=== PATIENT | female | born 1935 | race Caucasian/White ===

== ENCOUNTER 2023-07-27 16:08 | Emergency (ER) | payer OTHER ==
[~2023-07-27] VITALS: Ht 165.1 cm; Wt 45.5 kg
[2023-07-27 17:24] LABS: Basophils # (auto) 0 10 ^3/uL (0-0.2); Basophils % (auto) 0.5 % (0.0-2.0); Eosinophils # (auto) 0 10 ^3/uL (0-0.8); Eosinophils % (auto) 0.3 % (0.0-7.0); Hematocrit 36.7 % (36.0-46.0); Lymphocytes % (auto) 12.7 % (10.0-50.0); Mean Corpuscular Hemoglobin 30.3 pg (28.0-32.0); Mean Corpuscular Hgb Conc. 32.6 g/dL (32.0-36.0); Mean Corpuscular Volume 93.1 fL (80.0-100.0); Monocytes # (auto) 0.5 10 ^3/uL (0-1.3); Monocytes % (auto) 6.4 % (0.0-12.0); Neutrophils # (auto) 6.1 10 ^3/uL (1.6-8.6); Neutrophils % (auto) 80.1 % (37.0-80.0); Red Blood Cells 3.95 10^6/uL (4.0-5.20); Red Cell Distribution Width 14.4 % (11.8-14.3); White Blood Cell 7.6 10^3/uL (4.4-10.8)
[2023-07-27 17:36] LABS: Chloride 106 mmol/L (98-107); Potassium 4.1 mmol/L (3.5-5.1); Sodium 141 mmol/L (136-145)
[2023-07-27 17:37] LABS: Anion Gap 9 (5-15); Calcium 9.6 mg/dL (8.5-10.1); Carbon Dioxide 26 mmol/L (20-30)
[2023-07-27 17:42] LABS: BUN/Creatinine Ratio 31.6 (10.0-20.0); Blood Urea Nitrogen 31 mg/dL (9-23); Glucose 102 mg/dL (74-106)
[2023-07-27 17:49] LABS: Urine Bacteria NONE SEEN /hpf (None Seen); Urine Blood Negative /uL (Negative); Urine Clarity Clear (Clear); Urine Color Colorless (Yellow); Urine Hyaline Cast FEW /lpf (0 - 2); Urine Mucus FEW (None Seen); Urine Protein, UAD Negative (Negative); Urine Specific Gravity 1.013 (1.001-1.035); Urine Urobilinogen Normal (Negative); Urine WBC 1 /hpf (0 - 5); Urine pH 6.5 (5.0-8.0)
[2023-07-27 21:40] VITALS: BP 155/56; TEMP 97.3
[2023-07-27 21:44] VITALS: PULSE 85; RESP 14; O2SAT 98
== END 2023-07-27 21:26 | disposition home or self-care (01) ==
LOC: EDUNIT# 16:08 → ER 16:08 → EDBD 16:08 → ER 21:26
DX: R55 Syncope and collapse (principal)
CPT/HCPCS: 36415; 70450; 80048; 80320; 81001; 82962; 84484; 85025; 93005

== ENCOUNTER 2025-03-29 15:02 | Inpatient (IN) | payer OTHER ==
[~2025-03-29] VITALS: Ht 165.1 cm; Wt 58.4 kg
[2025-03-29 16:26] VITALS: PULSE 87; RESP 13; O2SAT 97
[2025-03-29 16:35] LABS: Hematocrit 35.4 % (36.0-46.0); Hemoglobin 11.6 g/dL (12.2-16.2); Mean Corpuscular Hemoglobin 30.6 pg (28.0-32.0); Mean Corpuscular Volume 93.5 fL (80.0-100.0); Nucleated Red Blood Cells % 0.0 %
[2025-03-29 16:43] LABS: Potassium 4.3 mmol/L (3.5-5.1); Sodium 144 mmol/L (136-145)
[2025-03-29 16:44] LABS: Anion Gap 11 (5-15); Calcium 9.2 mg/dL (8.7-10.4); Carbon Dioxide 25 mmol/L (20-31)
[2025-03-29 16:47] LABS: Chloride 108 mmol/L (98-107)
[2025-03-29 16:49] LABS: BUN/Creatinine Ratio 44.4 (10.0-20.0); Glucose 100 mg/dL (74-106)
[2025-03-29 16:51] LABS: Blood Urea Nitrogen 36 mg/dL (9-23); Lipase 66 U/L (12-53)
--- NOTE | 2025-03-29 18:53 | DVH ---
EXAM: CT LEFT LOWER EXTREMITY W/O CON INDICATION: Fall/trauma TECHNIQUE: Axial images of left lower extremity without contrast have been obtained along with zimmerman l and sagittal reformatted images. All CT scans at this facility use dose modulation, iterative recon struction, and/or weight based dosing when appropriate to reduce radiation dose to as low as reasonab ly achievable. COMPARISON: None FINDINGS: BONES: Nondisplaced left intertrochanteric fracture with extension to the lesser and greater trochant ers. No significant displacement. No distal femoral fracture. 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 MUSCLES: No abnormal attenuation. JOINT SPACES: No joint effusion. Left knee joint space loss with chondrocalcinosis of the medial and lateral menisci TENDONS/LIGAMENTS: Intact. OTHER: Vascular calcifications. IMPRESSION: 1. Nondisplaced left intertrochanteric fracture with extension to the lesser and greater trochanters.
[2025-03-29] MEDS: ACETAMINOPHEN 325 MG TAB PO ONE ×2 (18:58→22:40)
--- NOTE | 2025-03-29 19:21 | DVH ---
EXAM: CT PELVIS WO CONTRAST INDICATION: Trauma/fall/probable pelvic fracture TECHNIQUE: Axial images of pelvis without contrast have been obtained along with coronal and sagittal reformatted images. All CT scans at this facility use dose modulation, iterative reconstruction, and /or weight based dosing when appropriate to reduce radiation dose to as low as reasonably achievable. COMPARISON: None FINDINGS: BONES: Left femoral intertrochanteric fracture no visualized sacral or additional pelvic fracture. MUSCLES: Asymmetric edema of the left vastus intermedius muscle belly compatible with reactive myosit is and/or muscle strain. JOINT SPACES: No joint effusion. Chondrocalcinosis of bilateral hips, [id number]-left with at least [id number] degenerative change. Suspected chondrocalcinosis along the sacroiliac joints. TENDONS/LIGAMENTS: Intact. OTHER: Large amount of stool burden correlate for constipation. Vascular calcifications. Symmetric sa croiliac joints. IMPRESSION: 1. Left femoral intertrochanteric fracture. 2. No additional pelvic fracture. 3. Reactive myositis and/or muscle strain of the left vastus intermedius muscle belly.
[2025-03-29 19:35] VITALS: PULSE 85; RESP 20; O2SAT 97
--- NOTE | 2025-03-29 19:52 | ED.PDOC ---
Musculoskeletal HPI Comments This patient is a 9-year-old female who arrives to the ED today via EMS due to complaints of left hip pain status post ground level fall earlier today. Patient apparently was seen at urgent care and imaging study confirmed a left- sided pelvic fracture. Patient arrives with an external rotation of the left leg and shortening. Patient denies any head trauma. Patient denies any fever nausea or vomiting. Vital signs were stable. Chief Complaint: Lower Extremity Time Seen by MD: 15:57 Primary Care Provider: AIDEN Arechiga Notes: Nurses Notes, Business Development Executive Notes Allergies: Coded Allergies: NO KNOWN ALLERGIES (Unverified , 07/27/23) Information Source: Patient, Emergency Med Personnel Mode of Arrival: EMS Location: Left Extremity Location: Hip, Leg Timing: Hours Prehospital treatment: None Severity: Moderate Able to Move Extremity: No Bear Weight: No Hand Dominance: Right Mechanism: Blunt Trauma Circumstances: Fall Onset of Symptoms: After Trauma Symptoms: Pain DVT Risk Factors: NONE Past Medical History PAST MEDICAL HISTORY: HTN Surgical History: Denies all surgeries DYE MACHINE OPERATOR History: No Pertinent DYE MACHINE OPERATOR History Family History Family History: No family hx of Cancer, No family hx of DM, No family hx of Heart roger Social History Smoker: Non-Smoker Alcohol: Heavy Drugs: Denies Drug Use Lives In: Home Constitutional: denies: chills, diaphoresis, fatigue, fever, malaise, sweats, weakness, others EENTM: denies: blurred vision, double vision, ear bleeding, ear discharge, ear drainage, ear pain, ear ringing, eye pain, eye redness, hearing loss, mouth pain, mouth swelling, nasal discharge, nose bleeding, nose congestion, nose pain, photophobia, tearing, throat pain, throat swelling, voice changes, others Respiratory: denies: cough, hemoptysis, orthopnea, SOB at rest, shortness of breath, SOB with excertion, stridor, wheezing, others Cardiovascular: denies: chest pain, dizzy spells, diaphoresis, Dyspnea on exertion, edema, irregular heart beat, left arm pain, lightheadedness, palpitations, PND, syncope, others Gastrointestinal: denies: abdomen distended, abdominal pain, blood streaked bowels, constipated, diarrhea, dysphagia, difficulty swallowing, hematemesis, melena, nausea, poor appetite, poor fluid intake, rectal bleeding, rectal pain, vomiting, others Genitourinary: denies: abnormal vagina bleeding, burning, dyspareunia, dysuria, flank pain, frequency, hematuria, incontinence, pain, , vagina discharge, urgency, others Neurological: denies: dizziness, fainting, headache, left sided numbness, left sided weakness, numbness, paresthesia, pre-existing deficit, right sided numbness, right sided weakness, seizure, speech problems, tingling, tremors, weakness, others Musculoskeletal: reports: others (Left hip and left leg pain); denies: back pain, gout, joint pain, joint swelling, muscle pain, muscle stiffness, neck pain Integumetry: denies: bruises, change in color, change in hair/nails, dryness, laceration, lesions, lumps, rash, wounds, others Allergic/Immunocompromised: denies: Difficulty Healing, Frequent Infections, Hives, Itching, others Hematologic/Lymphatic: denies: anemia, blood clots, easy bleeding, easy bruising, swollen glands, others Endocrine: denies: excessive hunger, excessive sweating, excessive thirst, excessive urination, flushing, intolerance to cold, intolerance to heat, unexplained weight gain, unexplained weight loss, others Psychiatric: denies: anxiety, bipolar disorder, depression, hopeless, panic disorder, schizophrenia, sleepless, suicidal, others Physical Exam General Appearance: Moderate Distress ([id number] distress due to left hip and left leg pain concerns.), Thin HEENT: Normal ENT Inspection, Pharynx Normal, TMs Normal Neck: Full Range of Motion, Non-Tender, Normal, Normal Inspection Respiratory: Chest Non-Tender, Lungs Clear, No Accessory Muscle Use, No Respiratory Distress, Normal Breath Sounds Cardiovascular: No Edema, No JVD, No Murmur, No Gallop, Normal Peripheral Pulses, Regular Rate/Rhythm Breast Exam: Deferred Gastrointestinal: No Organomegaly, Non Tender, No Pulsatile Mass, Normal Bowel Sounds, Soft Genitalia: Deferred Pelvic: Deferred Rectal: Deferred Extremities: Other (Diffuse left hip pain extending into the left leg and into the lower extremity. Patient displays and external rotation and shortening of the leg. Significant reduced range of motion. Patient can not bear weight.) Neurologic: Alert Cerebellar Function: NOT DONE Reflexes: NOT DONE Skin: Dry, Normal Color, Warm Lymphatic: No Adenopathy Was a procedure done? Was a procedure done?: No Differential Diagnosis EXT Differential Diagnosis: Fracture, Sprain, Dislocation, Contusion, Strain X-Ray, Labs, Meds, VS Vital Signs Date Time Temp Pulse Resp B/P (MAP) Pulse Ox O2 Delivery O2 Flow Rate FiO2 03/30/25 02:14 98.1 100 18 172/76 (108) 97 98.1 03/30/25 01:44 204/93 03/29/25 21:49 98.1 78 18 135/85 (102) 97 98.1 03/29/25 19:35 98.1 85 18 143/81 (101) 97 98.1 03/29/25 19:35 85 20 97 Room Air* 0 21 03/29/25 18:00 90 16 188/76 (113) 97 03/29/25 16:26 87 13 97 Room Air* 0 21 03/29/25 16:26 97.8 87 13 136/68 (90) 97 97.8 03/29/25 15:08 98.3 86 12 155/69 96 98.3 Lab Test 03/29/25 17:24 03/29/25 16:20 Range/Units Troponin I High Sensitivity 6 7 </=34 ng/L White Blood Count 10.7 4.4-10.8 10^3/uL Red Blood Count 3.79 L 4.0-5.20 10^6/uL Hemoglobin 11.6 L 12.2-16.2 g/dL Hematocrit 35.4 L 36.0-46.0 % Mean Corpuscular Volume 93.5 80.0-100.0 fL Mean Corpuscular Hemoglobin 30.6 28.0-32.0 pg Mean Corpuscular Hemoglobin Concent 32.7 32.0-36.0 g/dL Red Cell Distribution Width 14.0 11.8-14.3 % Platelet Count 204 140-450 10^3/uL Mean Platelet Volume 8.5 6.9-10.8 fL Neutrophils (%) (Auto) 82.5 H 37.0-80.0 % Lymphocytes (%) (Auto) 9.6 L 10.0-50.0 % Monocytes (%) (Auto) 7.3 0.0-12.0 % Eosinophils (%) (Auto) 0.1 0.0-7.0 % Basophils (%) (Auto) 0.5 0.0-2.0 % Neutrophils # (Auto) 8.8 H 1.6-8.6 10 ^3/uL Lymphocytes # (Auto) 1.0 0.4-5.4 10 ^3/uL Monocytes # (Auto) 0.8 0-1.3 10 ^3/uL Eosinophils # (Auto) 0 0-0.8 10 ^3/uL Basophils # (Auto) 0 0-0.2 10 ^3/uL Nucleated Red Blood Cells 0.0 % Sodium Level 144 136-145 mmol/L Potassium Level 4.3 3.5-5.1 mmol/L Chloride Level 108 H 98-107 mmol/L Carbon Dioxide Level 25 20-31 mmol/L Anion Gap 11 5-15 Blood Urea Nitrogen 36 H 9-23 mg/dL Creatinine 0.81 0.550-1.02 mg/dL Glomerular Filtration Rate Calc 70 >90 mL/min BUN/Creatinine Ratio 44.4 H 10.0-20.0 Serum Glucose 100 74-106 mg/dL Lactic Acid Level 1.0 0.4-2.0 mmol/L Calcium Level 9.2 8.7-10.4 mg/dL Lipase 66 H 12-53 U/L Current Medications Medications (Trade) Dose Ordered Sig/Ethan Route Start Time Stop Time Status Last Admin Acetaminophen (Tylenol Tablet) 650 mg ONCE ONCE PO 03/29/25 19:00 03/29/25 19:01 DC 03/29/25 18:58 Acetaminophen (Tylenol Tablet) 650 mg ONCE ONCE PO 03/29/25 22:15 03/29/25 22:16 DC 03/29/25 22:40 Acetaminophen (Tylenol Tablet) 650 mg Q6HP PRN PO 03/29/25 23:00 03/30/25 01:44 Clonidine HCl (Catapres Tablet) 0.2 mg ONCE ONCE PO 03/30/25 01:30 03/30/25 01:31 DC 03/30/25 01:44 X-Ray, Labs, Meds, VS Comment All studies performed the ED today were evaluated by me personally. Serum laboratories revealed a mild anemia as well as an elevated lipase. Imaging studies confirmed a nondisplaced left intertrochanteric fracture with the extension into the lesser and greater trochanters. Patient is a [facility] patient and therefore, patient will be transfer for continued evaluation and management. Spoke with the [facility] and advised them of patient presentation as well as imaging and laboratories studies. They agreed to accept the patient is a transfer. Authorization number [id number]. [facility] called back to our facility and stated that they could not find placement for the patient. They were attempting to transfer the patient to a sister facility. [facility] states they can not get the patient placed and therefore, patient will be placed on admission. Dr. Muñoz was notified earlier this evening in his aware of the patient's admission. Spoke with Aiden to confirm continued care for patient at our facility. Spoke with Dr. Clark and he confirmed the patient can maintain continued care at our facility. Same authorization number as above. Time of 1ST Reevaluation: 19:49 Reevaluation 1ST: Improved Consultation: PCP Patient Education/Counseling: Diagnosis, Treatment Family Education/Counseling: Diagnosis, Treatment Sepsis Sepsis Reasesment Focused Exam Orders: Laboratory Tests 03/29/25 16:20: Lactic Acid Level 1.0 Recent Procedure: No On Antibiotic Therapy: No Respiratory Rate >20: No Heart Rate >90: No Temp<36 C (96.8 F) or >38.3 C: No SBP <90 or MAP <65 mmHG: No New Acute Mental Status Change: No Is the patient on CPAP, BIPAP,: No IV fluid given: No Departure 1 Departure Time of Disposition: 19:50 Impression: Primary Impression: Intertrochanteric fracture Disposition: ADMITTED INPATIENT Condition: Stable Discharged With: Self Critical Care Note Critical Care Time?: No Stability Stability form required: No Heart Score Heart Score: Heart Score Response (Comments) Value History N/A 0 EKG N/A 0 Age N/A 0 Risk Factors N/A 0 Troponin N/A 0 Total 0 RAMA TAPIA PAC Mar 29, 2025 19:52
[2025-03-30] VITALS (7 sets, daily range): BP systolic 142–175; BP diastolic 64–89; PULSE 66–136; RESP 18–20; TEMP 97.3–98.3; O2SAT 94–98
[2025-03-30] MEDS: ACETAMINOPHEN 325 MG TAB PO PRN (01:44)
[2025-03-30] MEDS ORDERED: MORPHINE SULFATE INJ 2 MG/ml SYRG IV PRN (03:00)
[2025-03-30] MEDS ORDERED: NITROGLYCERIN 0.4 MG SL TAB SL PRN (03:00)
[2025-03-30] MEDS ORDERED: ONDANSETRON HCL 4 MG/2 ML VIAL IV PRN (03:00)
--- NOTE | 2025-03-30 03:12 | DVHHP2 ---
History of Present Illness Reason for Visit: Intertrochanteric fracture History of Present Illness The patient is a 89-year-old female with past medical history of hypertension who presented to [facility] ED with complaint of left hip pain status post fall injury. Patient reports she had ground level fall earlier today hitting his left hips with sustained injury. Patient was seen at urgent care initially and imaging reports confirmed a left-sided pelvic fracture. Patient was seen and evaluated in the ED with an external rotation of the left leg and shortening. Laboratory data shows WBC 10.7, hemoglobin 11.6, hematocrit 35.4, platelets 204, sodium 144, potassium 4.3, BUN 36, creatinine 0.81, glucose 100, calcium 9.2, lipase 66, troponin seven, blood pressure 172/76 trending down to 135/86, heart rate 78, temperature 98.1 F, O2 saturation 97% on room air. Left lower extremity CT revealing nondisplaced left intratrochanteric fracture with extension to the laser and greater trochanters; pelvis CT revealing left femoral intratrochanteric fracture. Please see medication orders section in the computer. On my assessment, patient denied chest pain, no headache, dizziness, diaphoresis, shortness of breaths, no abdominal pain, diarrhea, nausea, vomiting, fever, chills. Patient was admitted for further evaluation and medical management. Past Medical History Hypertension Past Surgical History Denies all surgeries Family History Reviewed, noncontributory to the management of this case. Past Social History Patient lives at home, denies smoking, drinks alcohol heavily, denies illicit drugs abuse. Review of Systems Constitutional: Yes: Weakness; No: Fever, Chills, Sweats, Malaise, Other Eyes: No: Pain, Vision change, Conjunctivae inflammation, Eyelid inflammation, Other, Redness ENT: No: Ear pain, Ear discharge, Nose pain, Nose discharge, Nose congestion, Mouth pain, Mouth swelling, Throat pain, Throat swelling, Other Respiratory: No: Cough, Dry, Shortness of breath, SOB with excertion, Wheezing, Hemoptysis, Pleuritic Pain, Sputum, Wheezing, Other Cardiovascular: No: Chest Pain, Palpitations, Orthopnea, Paroxysmal Noc. Dyspnea, Edema, Lt Headedness, Other Gastrointestinal: No: Nausea, Vomiting, Abdominal Pain, Diarrhea, Constipation, Melena, Hematochezia, Other Genitourinary: No Dysuria, No Frequency, No Incontinence, No Hematuria, No Retention, No Other Musculoskeletal: other (Left hip and left leg pain); No: neck pain, shoulder pain, arm pain, back pain, hand pain, leg pain, foot pain Skin: No: Rash, Lesions, Jaundice, Bruising, Other Neurological: No: Weakness, Numbness, Incoordination, Change in speech, Confusion, Seizures, Other Allergies: Coded Allergies: NO KNOWN ALLERGIES (Unverified , 07/27/23) Medications Current Medications Medications Dose Ordered Sig/Ethan Route Start Time Stop Time Status Last Admin Dose Admin Acetaminophen 650 mg Q6HP PRN PO 03/29/25 23:00 03/30/25 01:44 650 MG Exam Vital Signs Vital Signs Date Time Temp Pulse Resp B/P (MAP) Pulse Ox O2 Delivery O2 Flow Rate FiO2 03/30/25 02:14 98.1 100 18 172/76 (108) 97 98.1 03/29/25 19:35 Room Air* 0 21 General Appearance: Alert, Oriented X3, Cooperative, No acute distress HEENT: Atraumatic, PERRLA, EOMI, Mucous membr. moist/pink Respiratory: Clear to auscultation, Normal air movement Cardiovascular: Regular rate, Normal S1, Normal S2, No murmurs Abdominal: Normal bowel sounds, Soft, No tenderness, No hepatospenomegaly, No masses Extremities: No clubbing, No cyanosis, No edema, Normal pulses, Other (Left lower extremity tenderness) Skin: No rashes, No breakdown, No significant lesion Neuro: Normal speech, Normal tone, Sensation intact, Cranial nerves 3-12 NL, Reflexes 2+, Other (Generalized weakness) Psych/Mental Status: Mental status NL, Mood NL Labs/Xrays Labs Test 03/29/25 17:24 03/29/25 16:20 Range/Units Troponin I High Sensitivity 6 </=34 ng/L White Blood Count 10.7 4.4-10.8 10^3/uL Red Blood Count 3.79 L 4.0-5.20 10^6/uL Hemoglobin 11.6 L 12.2-16.2 g/dL Hematocrit 35.4 L 36.0-46.0 % Mean Corpuscular Volume 93.5 80.0-100.0 fL Mean Corpuscular Hemoglobin 30.6 28.0-32.0 pg Mean Corpuscular Hemoglobin Concent 32.7 32.0-36.0 g/dL Red Cell Distribution Width 14.0 11.8-14.3 % Platelet Count 204 140-450 10^3/uL Mean Platelet Volume 8.5 6.9-10.8 fL Neutrophils (%) (Auto) 82.5 H 37.0-80.0 % Lymphocytes (%) (Auto) 9.6 L 10.0-50.0 % Monocytes (%) (Auto) 7.3 0.0-12.0 % Eosinophils (%) (Auto) 0.1 0.0-7.0 % Basophils (%) (Auto) 0.5 0.0-2.0 % Neutrophils # (Auto) 8.8 H 1.6-8.6 10 ^3/uL Lymphocytes # (Auto) 1.0 0.4-5.4 10 ^3/uL Monocytes # (Auto) 0.8 0-1.3 10 ^3/uL Eosinophils # (Auto) 0 0-0.8 10 ^3/uL Basophils # (Auto) 0 0-0.2 10 ^3/uL Nucleated Red Blood Cells 0.0 % Sodium Level 144 136-145 mmol/L Potassium Level 4.3 3.5-5.1 mmol/L Chloride Level 108 H 98-107 mmol/L Carbon Dioxide Level 25 20-31 mmol/L Anion Gap 11 5-15 Blood Urea Nitrogen 36 H 9-23 mg/dL Creatinine 0.81 0.550-1.02 mg/dL Glomerular Filtration Rate Calc 70 >90 mL/min BUN/Creatinine Ratio 44.4 H 10.0-20.0 Serum Glucose 100 74-106 mg/dL Lactic Acid Level 1.0 0.4-2.0 mmol/L Calcium Level 9.2 8.7-10.4 mg/dL Lipase 66 H 12-53 U/L PATIENT: RADHA PACE ACCT: [id number] UNIT: [id number] : 1935 LOC: ER ROOM / BED: / AGE / SEX: 89 / F ADM STATUS: REG ER SERVICE 1609 ORDERING PHYSICIAN: RAMA TAPIA PAC PROCEDURE(s): LLEX - LEFT LOWER EXTREMITY W/O CON REASON: Fall/trauma ORDER NUMBER(s): [id number], ACCESSION NUMBER(s): [id number] EXAM: CT LEFT LOWER EXTREMITY W/O CON INDICATION: Fall/trauma TECHNIQUE: Axial images of left lower extremity without contrast have been obtained along with coronal and sagittal reformatted images. All CT scans at this facility use dose modulation, iterative reconstruction, and/or weight based dosing when appropriate to reduce radiation dose to as low as reasonably achievable. COMPARISON: None FINDINGS: BONES: Nondisplaced left intertrochanteric fracture with extension to the lesser and greater trochanters. No significant displacement. No distal femoral fracture. Enchondroma of the distal femoral diaphysis. MUSCLES: No abnormal attenuation. JOINT SPACES: No joint effusion. Left knee joint space loss with chondrocalcinosis of the medial and lateral menisci TENDONS/LIGAMENTS: Intact. OTHER: Vascular calcifications. IMPRESSION: 1. Nondisplaced left intertrochanteric fracture with extension to the lesser and greater trochanters. ORDERING PHYSICIAN: RAMA TAPIA PAC PROCEDURE(s): PL2CT - PELVIS WO CONTRAST REASON: Trauma/fall/probable pelvic fracture ORDER NUMBER(s): [id number], ACCESSION NUMBER(s): [id number] EXAM: CT PELVIS WO CONTRAST INDICATION: Trauma/fall/probable pelvic fracture TECHNIQUE: Axial images of pelvis without contrast have been obtained along with coronal and sagittal reformatted images. All CT scans at this facility use dose modulation, iterative reconstruction, and/or weight based dosing when appropriate to reduce radiation dose to as low as reasonably achievable. COMPARISON: None FINDINGS: BONES: Left femoral intertrochanteric fracture no visualized sacral or additional pelvic fracture. MUSCLES: Asymmetric edema of the left vastus intermedius muscle belly compatible with reactive myositis and/or muscle strain. JOINT SPACES: No joint effusion. Chondrocalcinosis of bilateral hips, [id number]-left with at least [id number] degenerative change. Suspected chondrocalcinosis along the sacroiliac joints. TENDONS/LIGAMENTS: Intact. OTHER: Large amount of stool burden correlate for constipation. Vascular calcifications. Symmetric sacroiliac joints. IMPRESSION: 1. Left femoral intertrochanteric fracture. 2. No additional pelvic fracture. 3. Reactive myositis and/or muscle strain of the left vastus intermedius muscle belly. SEPSIS Sepsis Screen Date sepsis recognized/suspect: Mar 29, 2025 Time Sepsis recognized/suspect: 1935 Recent Procedure: No On Antibiotic Therapy: No Respiratory Rate >20: No Heart Rate >90: No Temp<36 C (96.8 F) or >38.3 C: No SBP <90 or MAP <65 mmHG: No New Acute Mental Status Change: No Is the patient on CPAP, BIPAP,: No IV fluid challenge completed?: No Physician Orders Imaging Transfer Request (03/29/25 20:33) Acetaminophen Tablet (Tylenol Tablet) (03/29/25 23:00) Complete Blood Count (03/30/25 04:00) Comprehensive Metabolic Panel (03/30/25 04:00) Clonidine Hcl Tablet (Catapres Tablet) (03/30/25 03:00) Lisinopril Tablet (Zestril Tablet) (03/30/25 10:00) * Orthopedic Consult (03/30/25 02:49) Admit (03/30/25 02:49) Allergies (03/30/25 02:49) Code Status (03/30/25 02:49) Sodium Chloride Lock (Saline Lock Ns) (03/30/25 06:00) Oxygen Per Hour (03/30/25 02:49) Hydrocodone-Acet 5/325mg Tab ([place]yle 5/32 (03/30/25 03:00) Ondansetron Hcl (Zofran) (03/30/25 03:00) Docusate Sodium Capsule (Colace Capsule) (03/30/25 03:00) Fall Risk Precautions In Place QSHIFT (03/30/25 02:49) Complete Blood Count (03/31/25 04:00) Comprehensive Metabolic Panel (03/31/25 04:00) Cardiac Diet-2gna,Lofat,Lochol (03/30/25 Breakfast) Condition: Serious (03/30/25 02:49) Enoxaparin Sodium (Lovenox) (03/30/25 10:00) Maintain Bed Rest (03/30/25 02:49) Sequential Compression Device (03/30/25 ) Nitroglycerin Sublingual (Ntrostat Subli (03/30/25 03:00) Morphine Sulfate Injection (03/30/25 03:00) Stat Ekg For Chest Pain (03/30/25 02:49) Notify Of Changes From Base (03/30/25 02:49) Monologist For 24 Hours (03/30/25 02:49) Emergency Dysrhythmia Protocol (03/30/25 02:49) Rhythm Strips Once Every Shift (03/30/25 02:49) Oxygen By Nasal Cannula (03/30/25 02:49) Vital Signs Date Time Temp Pulse Resp B/P (MAP) Pulse Ox O2 Delivery O2 Flow Rate FiO2 03/30/25 02:14 98.1 100 18 172/76 (108) 97 98.1 03/30/25 01:44 204/93 03/29/25 21:49 98.1 78 18 135/85 (102) 97 98.1 03/29/25 19:35 98.1 85 18 143/81 (101) 97 98.1 03/29/25 19:35 85 20 97 Room Air* 0 21 Laboratory Tests Test 03/29/25 16:20 Lactic Acid Level 1.0 mmol/L (0.4-2.0) White Blood Count 10.7 10^3/uL (4.4-10.8) Medications Medications Dose Ordered Sig/Ethan Route Start Time Stop Time Status Last Admin Dose Admin Acetaminophen 650 mg ONCE ONCE PO 03/29/25 19:00 03/29/25 19:01 DC 03/29/25 18:58 650 MG Acetaminophen 650 mg ONCE ONCE PO 03/29/25 22:15 03/29/25 22:16 DC 03/29/25 22:40 650 MG Acetaminophen 650 mg Q6HP PRN PO 03/29/25 23:00 03/30/25 01:44 650 MG Clonidine HCl 0.2 mg ONCE ONCE PO 03/30/25 01:30 03/30/25 01:31 DC 03/30/25 01:44 0.2 MG Assessment/Plan Assessment/Plan Intertrochanteric fracture Hypertensive urgency Generalized weakness Plan 1. Admit to telemetry unit 2. Breathing treatment 3. Pain control management 4. Management of fluids and electrolytes 5. Consultation for orthopedic surgery 6. Diagnostic tests pelvic CT 7. DVT prophylaxis-on Lovenox 8. Repeat labs CBC, CMP in a.m. 9. Continue with current medical management 10. Treatment plan discussed with patient and RN. Patient verbalized unders tanding. Plan discussed with: Patient, Other (RN) My Orders Orders - RIKA LARSEN DNP Procedure Category Date Status Time Complete Blood Count LAB 03/30/25 Verified 04:00 Comprehensive LAB 03/30/25 Verified Metabolic Panel 04:00 Clonidine Hcl Tablet [facility] 03/30/25 Verified (Catapres Tablet) 03:[address] [facility] 03/30/25 Verified (Zestril Tablet) 10:00 * Orthopedic Consult CONS 03/30/25 Verified 02:49 Admit ADMIT 03/30/25 Verified 02:49 Allergies [facility] 03/30/25 Verified 02:49 Code Status CODE 03/30/25 Verified 02:49 Sodium Chloride Lock PHA 03/30/25 Verified (Saline Lock Ns) 06:00 Oxygen Per Hour RT 03/30/25 Verified 02:49 Hydrocodone-Acet [facility] 03/30/25 Verified 5/325mg Tab (Argyle 03:[address] [facility] 03/30/25 Verified (Zofran) 03:[address] [facility] 03/30/25 Verified Capsule (Colace 03:00 Fall Risk Precautions [facility] 03/30/[address] 02:49 Complete Blood Count LAB 03/31/25 Verified 04:00 Comprehensive LAB 03/31/25 Verified Metabolic Panel 04:00 Cardiac DIET 03/30/25 Verified Diet-2gna,Lofat,Lochol Breakfast Condition: Serious [facility] 03/30/25 Verified 02:[address] [facility] 03/30/25 Verified (Lovenox) 10:00 Maintain Bed Rest [facility] 03/30/25 Verified 02:49 Sequential [facility] 03/30/25 Verified Compression Device Nitroglycerin [facility] 03/30/25 Verified Sublingual (Ntrostat 03:[address] [facility] 03/30/25 Verified Injection 03:00 Stat Ekg For Chest [facility] 03/30/25 Verified Pain 02:49 Notify Md Of Changes [facility] 03/30/25 Verified From Base 02:49 Monologist For [facility] 03/30/25 Verified 24 Hours 02:49 Emergency Dysrhythmia [facility] 03/30/25 Verified Protocol 02:49 Rhythm Strips Once [facility] 03/30/25 Verified Every Shift 02:49 Oxygen By Nasal RT 03/30/25 Verified Cannula 02:49 Problem List: (1) Intertrochanteric fracture (2) Hypertensive urgency (3) Generalized weakness Date of Service: Mar 30, 2025 Billing Provider: RIKA LARSEN DNP Common Visit Codes: [id number] INP/OBS CARE (HIGH) RIKA LARSEN DNP Mar 30, 2025 03:12
[2025-03-30] MEDS: SODIUM CHLOR 0.9% PF (SALINE LOCK) 10ML VIAL/SYR IV SCH (06:02)
--- NOTE | 2025-03-30 08:59 | DVH ---
CLINICAL INFORMATION: Fracture. TECHNIQUE: 3 views of the pelvis and left hip were obtained. COMPARISON: CT PELVIS WO CONTRAST on DOS: 03/29/25 FINDINGS: Acute, comminuted left hip intertrochanteric fracture with associated varus angulation, cor relating with the fracture seen on recent CT exam. Moderate joint space narrowing of the left hip. Mo derate soft tissue swelling adjacent to the fracture site. Bowel gas and stool partially obscure visu alization of portions of the pelvic osseous structures. IMPRESSION: Acute left hip intertrochanteric fracture.
[2025-03-30 09:05] LABS: Hematocrit 30.8 % (36.0-46.0); Hemoglobin 10.5 g/dL (12.2-16.2); Mean Corpuscular Hemoglobin 31.2 pg (28.0-32.0); Mean Corpuscular Volume 91.4 fL (80.0-100.0); Nucleated Red Blood Cells % 0.0 %
[2025-03-30 09:26] LABS: Alanine Aminotransferase 14 U/L (7-40); Albumin 3.9 g/dL (3.2-4.8); Alkaline Phosphatase 74 U/L (46-116); Anion Gap 10 (5-15); BUN/Creatinine Ratio 32.4 (10.0-20.0); Bilirubin, Total 1.0 mg/dL (0.2-1.0); Calcium 8.8 mg/dL (8.7-10.4); Carbon Dioxide 26 mmol/L (20-31); Glucose 104 mg/dL (74-106); Potassium 3.8 mmol/L (3.5-5.1); Sodium 144 mmol/L (136-145); Total Protein 6.3 g/dL (5.7-8.2)
[2025-03-30 10:05] LABS: Blood Urea Nitrogen 23 mg/dL (9-23); Chloride 108 mmol/L (98-107)
[2025-03-30] MEDS: ENOXAPARIN SOD 30 MG/0.3 ML SYRINGE SC SCH (11:29)
[2025-03-30] MEDS: LISINOPRIL 20 MG TAB PO SCH (12:06)
--- NOTE | 2025-03-30 12:07 | DVHINCON2 ---
Date of service: Mar 30, 2025 Referring Physician ED Reason for Consultation Left hip fracture History of Present Illness This is an 89-year-old woman who reports that she was in her home when she suffered a mechanical fall to her left side resulting in severe pain and inability to ambulate. She was brought to the emergency room where x-rays revealed a left proximal femur intertrochanteric fracture for which orthopedic consultation was requested. Prior to her injury she is an independent ambulator and active in all activities of daily living. She lives with her family in her own home. She denies any cardiac or neurologic symptoms associated with this fall. She denies any other injuries. She denies any head trauma. Past Medical History Hypertension Past Surgical History Denies Family History: Patient reports no known family medical history. Social History No drinking smoking or drugs Allergies: Coded Allergies: NO KNOWN ALLERGIES (Unverified , 07/27/23) Current Medications Current Medications Medications (Trade) Dose Ordered Sig/Ethan Route PRN Reason Start Time Stop Time Status Last Admin Acetaminophen (Tylenol Tablet) 650 mg Q6HP PRN PO PAIN SCALE 1-3 OR TEMP>100.4 03/29/25 23:00 03/30/25 11:29 Clonidine HCl (Catapres Tablet) 0.1 mg Q4HP PRN PO SBP>150 03/30/25 03:00 Lisinopril (Zestril Tablet) 20 mg DAILY PO 03/30/25 10:00 Sodium Chloride (Saline Lock Ns) 10 ml Q8HR IV 03/30/25 06:00 03/30/25 06:02 Acetaminophen/ Hydrocodone Bitart ([place] 5/325MG Tab) 1 tab Q4HP PRN PO MODERATE PAIN (4-6 PAIN SCALE) 03/30/25 03:00 Ondansetron HCl (Zofran) 4 mg Q4HP PRN IV NAUSEA / VOMITING 03/30/25 03:00 Docusate Sodium (Colace Capsule) 100 mg BIDPRN PRN PO FOR CONSTIPATION 03/30/25 03:00 Enoxaparin Sodium (Lovenox) 30 mg DAILY SC 03/30/25 10:00 03/30/25 11:29 Nitroglycerin (Ntrostat Sublingual) 0.4 mg Q5MINP PRN SL FOR CHEST PAIN 03/30/25 03:00 Morphine Sulfate 2 mg Q30M PRN IV FOR CHEST PAIN 03/30/25 03:00 Review of Systems Negative on 10 point review except as Vital Signs Vital Signs Date Time Temp Pulse Resp B/P (MAP) Pulse Ox O2 Delivery O2 Flow Rate FiO2 03/30/25 02:44 90/45 03/30/25 02:14 98.1 100 18 97 98.1 03/29/25 19:35 Room Air* 0 21 Physical Exam Well-developed well-nourished female in no acute distress Alert and oriented x4 She is holding her left lower extremity in an unusual position so it is difficult to assess deformity Any passive range of motion left lower extremity causes severe hip pain There was no lower extremity edema 2+ DP pulse She is able to demonstrate some minimal flexion-extension of the ankle Sensation subjectively intact X-rays of her left hip reveal a left proximal femur displaced intertrochanteric fracture Labs/Diagnostic Data Labs Test 03/30/25 08:56 03/29/25 17:24 03/29/25 16:20 Range/Units White Blood Count 6.0 # 4.4-10.8 10^3/uL Red Blood Count 3.37 L 4.0-5.20 10^6/uL Hemoglobin 10.5 L 12.2-16.2 g/dL Hematocrit 30.8 #L 36.0-46.0 % Mean Corpuscular Volume 91.4 80.0-100.0 fL Mean Corpuscular Hemoglobin 31.2 28.0-32.0 pg Mean Corpuscular Hemoglobin Concent 34.1 32.0-36.0 g/dL Red Cell Distribution Width 13.5 11.8-14.3 % Platelet Count 177 140-450 10^3/uL Mean Platelet Volume 7.9 6.9-10.8 fL Neutrophils (%) (Auto) 76.8 37.0-80.0 % Lymphocytes (%) (Auto) 12.6 10.0-50.0 % Monocytes (%) (Auto) 9.6 0.0-12.0 % Eosinophils (%) (Auto) 0.5 0.0-7.0 % Basophils (%) (Auto) 0.5 0.0-2.0 % Neutrophils # (Auto) 4.6 1.6-8.6 10 ^3/uL Lymphocytes # (Auto) 0.8 0.4-5.4 10 ^3/uL Monocytes # (Auto) 0.6 0-1.3 10 ^3/uL Eosinophils # (Auto) 0 0-0.8 10 ^3/uL Basophils # (Auto) 0 0-0.2 10 ^3/uL Nucleated Red Blood Cells 0.0 % Sodium Level 144 136-145 mmol/L Potassium Level 3.8 3.5-5.1 mmol/L Chloride Level 108 H 98-107 mmol/L Carbon Dioxide Level 26 20-31 mmol/L Anion Gap 10 5-15 Blood Urea Nitrogen 23 # 9-23 mg/dL Creatinine 0.71 0.550-1.02 mg/dL Glomerular Filtration Rate Calc 82 >90 mL/min BUN/Creatinine Ratio 32.4 H 10.0-20.0 Serum Glucose 104 74-106 mg/dL Calcium Level 8.8 8.7-10.4 mg/dL Total Bilirubin 1.0 0.2-1.0 mg/dL Aspartate Amino Transferase (AST) 28 13-40 U/L Alanine Aminotransferase (ALT) 14 7-40 U/L Alkaline Phosphatase 74 46-116 U/L Total Protein 6.3 5.7-8.2 g/dL Albumin 3.9 3.2-4.8 g/dL Troponin I High Sensitivity 6 </=34 ng/L Lactic Acid Level 1.0 0.4-2.0 mmol/L Lipase 66 H 12-53 U/L Assessment Acute displaced left proximal femur intertrochanteric fracture Plan/Recommendation Plan is for closed reduction cephalomedullary nail. I explained the diagnosis, prognosis, treatment options, procedure, and risks which include but are not limited to infection, bleeding, transfusion, malunion, nonunion, iatrogenic fracture, leg length discrepancy, nerve injury, PE, and DVT. Patient understood and agreed to proceed. All questions answered. Plan discussed with: Patient ALEC HILTON MD Mar 30, 2025 12:07
[2025-03-30] MEDS: MELATONIN 5 MG TAB PO ONE (22:00)
[2025-03-30] MEDS: KETOROLAC TROMETH 30 MG/ML 1ML VIAL IV ONE (23:45)
[2025-03-31 08:00] VITALS: PULSE 115; RESP 16; O2SAT 95
[2025-03-31 08:42] VITALS: BP 147/73; PULSE 112; RESP 16; TEMP 97.7; O2SAT 94
[2025-03-31] MEDS: ceFAZolin 2 GM/D5W50ml 50 ML IV ONE (10:12)
[2025-03-31] MEDS: TETRACAINE 1% INJ 2 ML VIAL IJ ONE (10:55)
[2025-03-31] MEDS ORDERED: MIDAZOLAM HCL 2MG/2ML 2ml VIAL (1mg/ml) ONE (10:59)
[2025-03-31] MEDS ORDERED: KETAMINE 50mg/ML 10ml Vial 10 ML ONE (10:59)
[2025-03-31] MEDS ORDERED: fentaNYL CITRATE 100 MCG/2 ML VL ONE (10:59)
[2025-03-31] MEDS ORDERED: PHENYLEPHRINE HCL 10 MG/ML VL ONE (12:10)
--- NOTE | 2025-03-31 12:10 | DVHOP2 ---
Operative Report - 2 Report Details Date: 03/31/25 Preop Diagnosis: Left proximal femur displaced intertrochanteric fracture Postop Diagnosis: Left proximal femur displaced intertrochanteric fracture Surgeon: Alec Hilton MD Anesthesiologist: Lydia Anesthesia: Regional Implant: [place] cephalomedullary nail 130 degree by 9 mm, 95 mm hip screw, 36 mm distal locking screw Consent: The patient was informed of the risks and benefits of the procedure. These include but are not limited to complications of anesthesia, postoperative infection, incomplete relief of symptoms, recurrence of symptoms, damage to blood vessels, nerves and tendons, deep venous thrombosis, pulmonary embolism and possible need for repeat surgery in the future. Complications: None Estimated Blood Loss: 20 cc Fluids: See anesthesia record Findings: Left proximal femur displaced intertrochanteric fracture Indications for Surgery: Unstable hip fracture Name of Procedure Performed Left proximal femur intertrochanteric fracture closed reduction, cephalomedullary nail C-arm fluoroscopy Procedure Details Procedure Details: The patient was brought to the operating room and placed on the [place] table in the supine position after being given spinal anesthetic. Preop patient received IV Ancef. Nonoperative extremity was placed in the well-leg luna. Operative extremity placed in boot traction. Closed reduction maneuver performed and verified with C-arm fluoroscopy in AP and lateral views. Surgical timeout performed verifying patient, laterality and procedure. Operative extremity was prepped and draped in sterile fashion. Incision was made proximal to the greater trochanter then I incised the fascia. I passed a guidewire into the proximal femur and adjusted the position based on AP and lateral views with C arm. I used the soft tissue protector and reamed over the guidewire then guidewire was removed. I then inserted the previously templated nail until appropriate depth was reached based on C-arm fluoroscopy. I then passed the hip screw cannula to skin then made skin and fascial incision and passed it to bone. I inserted a guidewire into the proximal femoral neck and head and again adjusted position based on C arm. I measured for length. I then reamed and inserted the hip screw. Guidewire and cannula were removed. I then used the distal locking cannula through the static hole passing it to skin and making skin and fascial incision then passing it to bone. I drilled and measured length off the drill bit and inserted distal locking screw. I obtain C arm views AP and lateral throughout the length of the construct to verify fracture reduction and hardware placement. Wounds were irrigated with normal saline. Fascial tissue closed with 0 Vicryl. Subcu closed with 2-0 Vicryl. Skin closed with bharati. Wounds dressed sterilely. Patient tolerated procedure well was brought to recovery in stable condition. Condition Stable Disposition Still a Patient ALEC HILTON MD Mar 31, 2025 12:10
[2025-03-31] MEDS ORDERED: STERILE WATER 10 ML ONE (12:11)
[2025-03-31] MEDS ORDERED: HYDROcodone-ACET 10/325MG TAB PO PRN (12:15)
[2025-03-31 12:21] VITALS: PULSE 122; RESP 22; O2SAT 100
[2025-03-31] MEDS ORDERED: ONDANSETRON HCL 4 MG/2 ML VIAL IV PRN (13:00)
--- NOTE | 2025-03-31 13:24 | DVHPN2 ---
Subjective The patient seen and examined at bedside. Per daughter at bedside the patient is very confuse and out of her base line. Patient also told me she see different color and immage that nobody else see in the room. She said it happen couple month ago when she had her heart valve replacement, she started seeing these image. Reviewed: Care Plan, H&P, Labs, Medications, Previous Orders, Radiology Changes from previous H/P or p: No Changes Eyes: No Pain, No Vision change, No Conjunctivae inflammation, No Eyelid inflammation, No Other, No Redness ENT: No Ear pain, No Ear discharge, No Nose pain, No Nose discharge, No Nose congestion, No Mouth pain, No Mouth swelling, No Throat pain, No Throat swelling, No Other Cardiovascular: No Chest Pain, No Palpitations, No Orthopnea, No Paroxysmal Noc. Dyspnea, No Edema, No Lt Headedness, No Other Respiratory: No Cough, No Dry, No Shortness of breath, No SOB with excertion, No Wheezing, No Hemoptysis, No Pleuritic Pain, No Sputum, No Other Gastrointestinal: No Nausea, No Vomiting, No Abdominal Pain, No Diarrhea, No Constipation, No Melena, No Hematochezia, No Other Genitourinary: No Dysuria, No Frequency, No Incontinence, No Hematuria, No Retention, No Other Musculoskeletal: other (Left hip and left leg pain); No neck pain, No shoulder pain, No arm pain, No back pain, No hand pain, No leg pain, No foot pain Skin: No Rash, No Lesions, No Jaundice, No Bruising, No Other Objective Vitals Vital Signs Date Time Temp Pulse Resp B/P (MAP) Pulse Ox O2 Delivery O2 Flow Rate FiO2 03/31/25 08:42 97.7 112 16 147/73 (97) 94 97.7 03/31/25 08:00 Room Air* 0 21 Intake/Output Intake and Output 03/31/25 07:00 Intake Total 0 ml Balance 0 ml Intake Oral 0 ml # Voids 1 General Appearance: Alert, Cooperative, No acute distress HEENT: Atraumatic, PERRLA, EOMI, Mucous membr. moist/pink Neck: Supple Lungs: Clear to auscultation, Normal air movement Cardiovascular: Regular rate, Normal S1, Normal S2, No murmurs, Gallops, Rubs Abdomen: Normal bowel sounds, Soft, No tenderness Neuro: Cranial nerves 3-12 NL Psych/Mental Status: Mental status NL Medications Current Medications Medications Dose Ordered Sig/Ethan Route Start Time Stop Time Status Last Admin Dose Admin Acetaminophen 650 mg Q6HP PRN PO 03/29/25 23:00 03/30/25 11:29 650 MG Clonidine HCl 0.1 mg Q4HP PRN PO 03/30/25 03:00 Lisinopril 20 mg DAILY PO 03/30/25 10:00 03/30/25 12:06 20 MG Sodium Chloride 10 ml Q8HR IV 03/30/25 06:00 03/30/25 14:53 10 ML Acetaminophen/ Hydrocodone Bitart 1 tab Q4HP PRN PO 03/30/25 03:00 Ondansetron HCl 4 mg Q4HP PRN IV 03/30/25 03:00 Docusate Sodium 100 mg BIDPRN PRN PO 03/30/25 03:00 Nitroglycerin 0.4 mg Q5MINP PRN SL 03/30/25 03:00 Morphine Sulfate 2 mg Q30M PRN IV 03/30/25 03:00 Lactated Ringer's 1,000 ml @ 100 mls/hr Q10H IV 03/31/25 12:15 Sodium Chloride 10 ml Q8HR IV 03/31/25 14:00 Enoxaparin Sodium 40 mg DAILY SC 04/01/25 10:00 Acetaminophen/ Hydrocodone Bitart 1 tab Q4HP PRN PO 03/31/25 12:15 Cefazolin Sodium/ Dextrose 50 ml @ 50 mls/hr Q8HR IV 03/31/25 14:00 03/31/25 22:59 Laboratory Results Laboratory Tests 03/30/25 08:56 Labs and/or images reviewed: Labs reviewed by me Assessment/Plan Assessment/Plan Left Intertrochanteric fracture status post ORIF Hypertensive urgency, improved. Generalized weakness Encephalopathy ? Hallucination. History of Aortic valve replacement. Continue current management. Will order UA and Urine culture Continue HTN meds Will order CT head without contrast to rule out CVA This medical document was created using an electronic medical record system with [employer] computerized dictation system. Although this document has been carefully reviewed, there may still be some phonetic and typographical errors. These areas are purely typographical due to imperfections of the software programs, and do not reflect any compromise in the patient's medical care. Plan discussed with: Patient Date of Service: Mar 31, 2025 Billing Provider: MAHAMED MARRERO MD Common Visit Codes: [id number] INP/OBS CARE(HIGH) MAHAMED MARRERO MD Mar 31, 2025 13:24
[2025-03-31] MEDS: SODIUM CHLOR 0.9% PF (SALINE LOCK) 10ML VIAL/SYR IV SCH (14:00)
[2025-03-31] MEDS: ceFAZolin 2 GM/D5W50ml 50 ML IV SCH (14:00)
--- NOTE | 2025-03-31 17:26 | DVH ---
CT HEAD WITHOUT CONTRAST INDICATION: rule out CVA EXAM DATE: 03/31/2025 04:46 PM COMPARISON: CT HEAD WITHOUT CONTRAST on DOS: 07/27/23 RADIATION DOSE: CTDIvol: 51.78 mGy, DLP: 1020.65 mGy*cm PROCEDURE: CT scans of the head were obtained from the vertex to the skull base. Sagittal and coronal reconstructions were provided. All CT scans at this medical facility are performed using dose modulation techniques as appropriate t o a performed exam including the following: Automated exposure control was utilized; adjustment of th e MA and/or KV according to patient size; and use of iterative reconstruction technique. FINDINGS: There is sulcal and ventricular prominence. The brainshows normal morphology and kumar-whi te matter differentiation, without intracranial hemorrhage, extra-axial fluid collection, mass effect or acute large vessel infarct. The ventricles are normal in size. The basal cisterns are patent. The skull and visible facial bones are intact. The paranasal sinuses, mastoid air cells and middle ear c avities are well-aerated. The soft tissues of the scalp are unremarkable. Incomplete fusion of C1. IMPRESSION: No acute intracranial abnormality.
--- NOTE | 2025-03-31 18:07 | DVH ---
C-ARM FLUOROSCOPY: PROCEDURE: Open reduction internal fixation of the left proximal femoral fracture FLUOROSCOPY TIME: 26 seconds Air Kerma: 2.45 mgy FINDINGS: Spot intraoperative C arm radiographs demonstrating open reduction internal fixation left proximal fe moral fracture. IMPRESSION: 1. Please refer to surgical report for detailed findings.
--- NOTE | 2025-03-31 18:09 | DVH ---
CLINICAL INDICATION: LEFT HIP NAILING TECHNIQUE: 7 radiographic views of the open reduction internal fixation of a left hip fracture were o btained. Comparison: XY L HIP COMPLETE XRAY on DOS: 03/30/25 FINDINGS/IMPRESSION: Total fluoro time 26 seconds Cumulative dose: 2.45 mGy
[2025-03-31 18:58] LABS: Hematocrit 27.9 % (36.0-46.0); Hemoglobin 9.4 g/dL (12.2-16.2); Mean Corpuscular Hemoglobin 31.1 pg (28.0-32.0); Mean Corpuscular Volume 91.9 fL (80.0-100.0); Nucleated Red Blood Cells % 0.0 %
[2025-03-31 19:14] LABS: INR 1.03 (0.9-1.15); Partial Thromboplastin Time 25.0 SEC (24.5-34.5); Prothrombin Time 10.9 sec (9.3-11.8)
[2025-03-31 19:15] LABS: Alanine Aminotransferase 26 U/L (7-40); Albumin 3.5 g/dL (3.2-4.8); Alkaline Phosphatase 66 U/L (46-116); Anion Gap 12 (5-15); BUN/Creatinine Ratio 31.9 (10.0-20.0); Bilirubin, Total 0.9 mg/dL (0.2-1.0); Carbon Dioxide 23 mmol/L (20-31); Chloride 106 mmol/L (98-107); Glucose 105 mg/dL (74-106); Sodium 141 mmol/L (136-145); Total Protein 5.8 g/dL (5.7-8.2)
[2025-03-31 19:36] LABS: Blood Urea Nitrogen 23 mg/dL (9-23); Calcium 8.6 mg/dL (8.7-10.4); Potassium 3.5 mmol/L (3.5-5.1)
[2025-03-31 20:00] VITALS: PULSE 120
[2025-03-31 21:00] VITALS: BP 109/54; PULSE 103; RESP 19; TEMP 99.8; O2SAT 92
[2025-03-31] MEDS: LACTATED RINGER'S 1,000 ML IV SCH (22:15)
[2025-04-01] VITALS (9 sets, daily range): BP systolic 95–138; BP diastolic 42–80; PULSE 93–127; RESP 18–20; TEMP 97.4–98.9; O2SAT 90–97
[2025-04-01 03:10] LABS: Urine Protein, UAD TRACE (Negative)
[2025-04-01] MEDS ORDERED: LISI10TA34 PO (03:37)
[2025-04-01] MEDS ORDERED: GAB100C PO (03:37)
[2025-04-01] MEDS: ENOXAPARIN SOD 40 MG/0.4 ML SYRINGE SC SCH (10:22)
[2025-04-01 10:35] LABS: Hematocrit 24.7 % (36.0-46.0); Hemoglobin 8.4 g/dL (12.2-16.2); Mean Corpuscular Hemoglobin 30.8 pg (28.0-32.0); Mean Corpuscular Volume 90.9 fL (80.0-100.0); Nucleated Red Blood Cells % 0.0 %
[2025-04-01 10:43] LABS: Chloride 107 mmol/L (98-107); Sodium 142 mmol/L (136-145)
[2025-04-01 10:44] LABS: Anion Gap 11 (5-15); Carbon Dioxide 24 mmol/L (20-31)
[2025-04-01 10:47] LABS: Calcium 8.4 mg/dL (8.7-10.4); Potassium 3.5 mmol/L (3.5-5.1)
[2025-04-01 10:50] LABS: BUN/Creatinine Ratio 37.8 (10.0-20.0)
[2025-04-01 10:51] LABS: Blood Urea Nitrogen 31 mg/dL (9-23); Glucose 125 mg/dL (74-106)
--- NOTE | 2025-04-01 12:18 | DVHPN2 ---
Subjective The patient seen and examined at bedside. Per daughter at bedside the patient is very confuse and out of her base line. Patient also told me she see different color and immage that nobody else see in the room. She said it happen couple month ago when she had her heart valve replacement, she started seeing these image. Reviewed: Care Plan, H&P, Labs, Medications, Previous Orders, Radiology Changes from previous H/P or p: No Changes Eyes: No Pain, No Vision change, No Conjunctivae inflammation, No Eyelid inflammation, No Other, No Redness ENT: No Ear pain, No Ear discharge, No Nose pain, No Nose discharge, No Nose congestion, No Mouth pain, No Mouth swelling, No Throat pain, No Throat swelling, No Other Cardiovascular: No Chest Pain, No Palpitations, No Orthopnea, No Paroxysmal Noc. Dyspnea, No Edema, No Lt Headedness, No Other Respiratory: No Cough, No Dry, No Shortness of breath, No SOB with excertion, No Wheezing, No Hemoptysis, No Pleuritic Pain, No Sputum, No Other Gastrointestinal: No Nausea, No Vomiting, No Abdominal Pain, No Diarrhea, No Constipation, No Melena, No Hematochezia, No Other Genitourinary: No Dysuria, No Frequency, No Incontinence, No Hematuria, No Retention, No Other Musculoskeletal: other (Left hip and left leg pain); No neck pain, No shoulder pain, No arm pain, No back pain, No hand pain, No leg pain, No foot pain Skin: No Rash, No Lesions, No Jaundice, No Bruising, No Other Objective Vitals Vital Signs Date Time Temp Pulse Resp B/P (MAP) Pulse Ox O2 Delivery O2 Flow Rate FiO2 04/01/25 10:21 109/42 04/01/25 08:00 18 97 Room Air* 0 21 04/01/25 05:00 98.1 107 98.1 Intake/Output Intake and Output 04/01/25 07:00 Intake Total 770 ml Output Total 950 ml Balance -180 ml Intake Oral 720 ml IV Total 50 ml Output Urine Total 950 ml General Appearance: Alert, Cooperative, No acute distress HEENT: Atraumatic, PERRLA, EOMI, Mucous membr. moist/pink Neck: Supple Lungs: Clear to auscultation, Normal air movement Cardiovascular: Regular rate, Normal S1, Normal S2, No murmurs, Gallops, Rubs Abdomen: Normal bowel sounds, Soft, No tenderness Neuro: Cranial nerves 3-12 NL Psych/Mental Status: Mental status NL Medications Current Medications Medications Dose Ordered Sig/Ethan Route Start Time Stop Time Status Last Admin Dose Admin Acetaminophen 650 mg Q6HP PRN PO 03/29/25 23:00 03/31/25 22:16 650 MG Clonidine HCl 0.1 mg Q4HP PRN PO 03/30/25 03:00 Lisinopril 20 mg DAILY PO 03/30/25 10:00 04/01/25 10:21 20 MG Acetaminophen/ Hydrocodone Bitart 1 tab Q4HP PRN PO 03/30/25 03:00 Ondansetron HCl 4 mg Q4HP PRN IV 03/30/25 03:00 Docusate Sodium 100 mg BIDPRN PRN PO 03/30/25 03:00 Nitroglycerin 0.4 mg Q5MINP PRN SL 03/30/25 03:00 Morphine Sulfate 2 mg Q30M PRN IV 03/30/25 03:00 Lactated Ringer's 1,000 ml @ 100 mls/hr Q10H IV 03/31/25 12:15 Sodium Chloride 10 ml Q8HR IV 03/31/25 14:00 04/01/25 06:57 10 ML Enoxaparin Sodium 40 mg DAILY SC 04/01/25 10:00 04/01/25 10:22 40 MG Acetaminophen/ Hydrocodone Bitart 1 tab Q4HP PRN PO 03/31/25 12:15 Hold Laboratory Results Laboratory Tests 04/01/25 10:10 Chemistry Test 03/31/25 18:37 04/01/25 10:10 Albumin 3.5 g/dL (3.2-4.8) Calcium Level 8.6 mg/dL (8.7-10.4) L 8.4 mg/dL (8.7-10.4) L Total Protein 5.8 g/dL (5.7-8.2) Coagulation Test 03/31/25 18:37 Prothrombin Time 10.9 sec (9.3-11.8) Prothrombin Time INR 1.03 (0.9-1.15) Activated Partial Thromboplast Time 25.0 SEC (24.5-34.5) LFT Test 03/31/25 18:37 Alanine Aminotransferase (ALT) 26 U/L (7-40) Alkaline Phosphatase 66 U/L (46-116) Aspartate Amino Transferase (AST) 61 U/L (13-40) H Total Bilirubin 0.9 mg/dL (0.2-1.0) Urinalysis Test 04/01/25 01:17 Urine Color Yellow (Yellow) Urine Clarity Clear (Clear) Urine pH 5.5 (5.0-9.0) Urine Specific [place] 1.028 (1.001-1.035) Urine Protein Trace (Negative) H Urine Ketones 2+ (Negative) H Urine Blood 2+ /uL (Negative) H Urine Nitrite Negative (Negative) Urine Bilirubin Negative (Negative) Urine Urobilinogen Normal mg/dL (Negative) Urine Leukocyte Esterase 2+ /uL (Negative) Urine RBC 148 /hpf (0 - 4) Urine Microscopic WBC 38 /HPF (0-5) H Urine Squamous Epithelial Cells Few /hpf (<5) Urine Bacteria None seen /hpf (None Seen) Urine Mucus Few (None Seen) Urine Glucose Normal mg/dL (Normal) Labs and/or images reviewed: Labs reviewed by me Assessment/Plan Assessment/Plan Left Intertrochanteric fracture status post ORIF Hypertensive urgency, improved. Generalized weakness Encephalopathy ? Hallucination. History of Aortic valve replacement. Continue current management. PT per orthopedic surgeon. Continue HTN meds CT head show no acute CVA UA is normal This medical document was created using an electronic medical record system with [employer] computerized dictation system. Although this document has been carefully reviewed, there may still be some phonetic and typographical errors. These areas are purely typographical due to imperfections of the software programs, and do not reflect any compromise in the patient's medical care. Plan discussed with: Patient My Orders Orders - MAHAMED MARRERO MD Procedure Category Date Status Time Head Without Contrast CT 03/31/25 Resulted 14:29 Urinalysis LAB 03/31/25 Uncollected 14:29 Date of Service: Apr 01, 2025 Billing Provider: MAHAMED MARRERO MD Common Visit Codes: [id number] INP/OBS CARE(HIGH) MAHAMED MARRERO MD Apr 01, 2025 12:18
[2025-04-01] MEDS: LISINOPRIL 5 MG TAB PO ONE (14:44)
[2025-04-01] MEDS: DOCUSATE SOD 100 MG CAP PO PRN (14:44)
--- NOTE | 2025-04-01 18:42 | DVHPN2 ---
Progress Note Progress Note S/P LEFT HIP Closed reduction CMN DOS: T-1 S: Pt reports pain controlled with oral pain meds. Pt denies any new numbness or tingling. No acute events overnight. Denies F/C. Denies CP/SOB/palpitations. Denies lightheadedness/dizziness O: The patient is awake resting comfortably in bed. Left hip reveals surgical dressing to be intact with minimal strikethrough. Pt is able to motor fire quad, dorsiflex and plantar flex toes and ankle. SILT over the sural, saphenous, tibial, deep and superficial peroneal nerve distribution patterns. 2+ DP, BCR, euthermic A/P: S/p Left Closed reduction Left hip CMN, expected post-operative course. The patient is medically stable and doing well. Pt has not walked with PT today, Pt states they helped her with Foot and Ankle ROM and to get from laying to sitting position. Pt to continue to work with physical therapy for mobilization. - WBAT LLE with use of FWW for balance and assistance. - DVT ppx: Per Surgeon and Hospital/inpatient team protocol, SHIRLEY, LORRAINE morales - Antibiotics: completed - Pain medication: Per Inpatient team The patient will be ready to be discharged once pain is controlled and cleared by PT Plan discussed with: Patient, Other (bedside nurse) Visit Coding Surgery Date of Service if different f: Apr 01, 2025 Billing Provider: GLORIA KHAN Surgery Visit Codes: [id number] - INP CONSULT <55 MIN GLORIA KHAN Apr 01, 2025 18:42
[2025-04-01] MEDS ORDERED: GABAPENTIN 300 MG CAP PO SCH (22:00)
[2025-04-01] MEDS: GABAPENTIN 300 MG CAP PO SCH (22:06)
[2025-04-02] VITALS (7 sets, daily range): BP systolic 108–127; BP diastolic 41–70; PULSE 68–117; RESP 16–20; TEMP 97.3–97.9; O2SAT 90–98
[2025-04-02] MEDS: LISINOPRIL 5 MG TAB PO SCH (09:59)
[2025-04-02] MEDS: HYDROcodone-ACET 5/325MG TAB PO PRN (10:00)
--- NOTE | 2025-04-02 10:28 | DVHPN2 ---
Subjective The patient seen and examined at bedside.The patient sit up today and take couple step but was not able to walk 10 feets yet. Reviewed: Care Plan, H&P, Labs, Medications, Previous Orders, Radiology Changes from previous H/P or p: No Changes Eyes: No Pain, No Vision change, No Conjunctivae inflammation, No Eyelid inflammation, No Other, No Redness ENT: No Ear pain, No Ear discharge, No Nose pain, No Nose discharge, No Nose congestion, No Mouth pain, No Mouth swelling, No Throat pain, No Throat swelling, No Other Cardiovascular: No Chest Pain, No Palpitations, No Orthopnea, No Paroxysmal Noc. Dyspnea, No Edema, No Lt Headedness, No Other Respiratory: No Cough, No Dry, No Shortness of breath, No SOB with excertion, No Wheezing, No Hemoptysis, No Pleuritic Pain, No Sputum, No Other Gastrointestinal: No Nausea, No Vomiting, No Abdominal Pain, No Diarrhea, No Constipation, No Melena, No Hematochezia, No Other Genitourinary: No Dysuria, No Frequency, No Incontinence, No Hematuria, No Retention, No Other Musculoskeletal: other (Left hip and left leg pain); No neck pain, No shoulder pain, No arm pain, No back pain, No hand pain, No leg pain, No foot pain Skin: No Rash, No Lesions, No Jaundice, No Bruising, No Other Objective Vitals Vital Signs Date Time Temp Pulse Resp B/P (MAP) Pulse Ox O2 Delivery O2 Flow Rate FiO2 04/02/25 09:59 127/70 04/02/25 09:00 97.4 111 18 90 97.4 04/02/25 08:00 Nasal Cannula* 2 28 Intake/Output Intake and Output 04/02/25 07:00 Intake Total 950 ml Output Total 1975 ml Balance -1025 ml Intake Oral 950 ml Output Urine Total 1975 ml # Bowel Movements 1 General Appearance: Alert, Cooperative, No acute distress HEENT: Atraumatic, PERRLA, EOMI, Mucous membr. moist/pink Neck: Supple Lungs: Clear to auscultation, Normal air movement Cardiovascular: Regular rate, Normal S1, Normal S2, No murmurs, Gallops, Rubs Abdomen: Normal bowel sounds, Soft, No tenderness Neuro: Cranial nerves 3-12 NL Psych/Mental Status: Mental status NL Medications Current Medications Medications Dose Ordered Sig/Ethan Route Start Time Stop Time Status Last Admin Dose Admin Acetaminophen 650 mg Q6HP PRN PO 03/29/25 23:00 04/01/25 14:48 650 MG Clonidine HCl 0.1 mg Q4HP PRN PO 03/30/25 03:00 Acetaminophen/ Hydrocodone Bitart 1 tab Q4HP PRN PO 03/30/25 03:00 04/02/25 10:00 1 TAB Ondansetron HCl 4 mg Q4HP PRN IV 03/30/25 03:00 Docusate Sodium 100 mg BIDPRN PRN PO 03/30/25 03:00 04/01/25 14:44 100 MG Nitroglycerin 0.4 mg Q5MINP PRN SL 03/30/25 03:00 Morphine Sulfate 2 mg Q30M PRN IV 03/30/25 03:00 Lactated Ringer's 1,000 ml @ 100 mls/hr Q10H IV 03/31/25 12:15 04/02/25 03:57 100 MLS/HR Sodium Chloride 10 ml Q8HR IV 03/31/25 14:00 04/02/25 07:06 10 ML Enoxaparin Sodium 40 mg DAILY SC 04/01/25 10:00 04/02/25 09:59 40 MG Acetaminophen/ Hydrocodone Bitart 1 tab Q4HP PRN PO 03/31/25 12:15 Hold Lisinopril 10 mg DAILY PO 04/02/25 10:00 04/02/25 09:59 10 MG Aspirin 81 mg DAILY PO 04/02/25 10:00 04/02/25 09:58 81 MG Gabapentin 300 mg HS PO 04/01/25 22:00 04/01/25 22:06 300 MG Laboratory Results Laboratory Tests 04/01/25 10:10 Urinalysis Test 04/01/25 01:17 Urine Color Yellow (Yellow) Urine Clarity Clear (Clear) Urine pH 5.5 (5.0-9.0) Urine Specific [place] 1.028 (1.001-1.035) Urine Protein Trace (Negative) H Urine Ketones 2+ (Negative) H Urine Blood 2+ /uL (Negative) H Urine Nitrite Negative (Negative) Urine Bilirubin Negative (Negative) Urine Urobilinogen Normal mg/dL (Negative) Urine Leukocyte Esterase 2+ /uL (Negative) Urine RBC 148 /hpf (0 - 4) Urine Microscopic WBC 38 /HPF (0-5) H Urine Squamous Epithelial Cells Few /hpf (<5) Urine Bacteria None seen /hpf (None Seen) Urine Mucus Few (None Seen) Urine Glucose Normal mg/dL (Normal) Labs and/or images reviewed: Labs reviewed by me Assessment/Plan Assessment/Plan Left Intertrochanteric fracture status post ORIF Hypertensive urgency, improved. Generalized weakness Encephalopathy ? Hallucination. History of Aortic valve replacement. Continue current management. PT per orthopedic surgeon. Continue HTN meds CT head show no acute CVA UA is normal This medical document was created using an electronic medical record system with [employer] direct computerized dictation system. Although this document has been carefully reviewed, there may still be some phonetic and typographical errors. These areas are purely typographical due to imperfections of the software programs, and do not reflect any compromise in the patient's medical care. Plan discussed with: Patient My Orders Orders - MAHAMED MARRERO MD Procedure Category Date Status Time Lisinopril Tablet PHA 04/02/25 In Process (Zestril Tablet) 10:00 Aspirin Tablet PHA 04/02/25 In Process 10:00 Gabapentin Capsule PHA 04/01/25 In Process (Neurontin Capsule) 22:00 Date of Service: Apr 02, 2025 Billing Provider: MAHAMED MARRERO MD Common Visit Codes: [id number] INP/OBS CARE(HIGH) MAHAMED MARREOR MD Apr 02, 2025 10:28
[2025-04-03] VITALS (7 sets, daily range): BP systolic 114–134; BP diastolic 56–69; PULSE 72–160; RESP 15–18; TEMP 97.7–99.2; O2SAT 90–100
[2025-04-03 09:06] LABS: Hematocrit 22.2 % (36.0-46.0); Hemoglobin 7.6 g/dL (12.2-16.2); Mean Corpuscular Hemoglobin 31.4 pg (28.0-32.0); Mean Corpuscular Volume 92.0 fL (80.0-100.0); Nucleated Red Blood Cells % 0.1 %
[2025-04-03 09:13] LABS: Chloride 101 mmol/L (98-107); Potassium 3.8 mmol/L (3.5-5.1); Sodium 137 mmol/L (136-145)
[2025-04-03 09:14] LABS: Anion Gap 9 (5-15); Carbon Dioxide 27 mmol/L (20-31)
[2025-04-03 09:19] LABS: BUN/Creatinine Ratio 27.7 (10.0-20.0); Blood Urea Nitrogen 18 mg/dL (9-23)
[2025-04-03 09:20] LABS: Calcium 8.2 mg/dL (8.7-10.4); Glucose 146 mg/dL (74-106)
[2025-04-03] MEDS: CALCIUM W/VIT D (600MG/400IU) TAB PO SCH (09:56)
[2025-04-03] MEDS: CYANOCOBALAMIN 500 MCG TAB PO SCH (09:56)
--- NOTE | 2025-04-03 11:34 | DVHPN2 ---
Subjective The patient seen and examined at bedside.The patient sit up today and take couple step but was not able to walk 10 feets yet. Reviewed: Care Plan, H&P, Labs, Medications, Previous Orders, Radiology Changes from previous H/P or p: No Changes Eyes: No Pain, No Vision change, No Conjunctivae inflammation, No Eyelid inflammation, No Other, No Redness ENT: No Ear pain, No Ear discharge, No Nose pain, No Nose discharge, No Nose congestion, No Mouth pain, No Mouth swelling, No Throat pain, No Throat swelling, No Other Cardiovascular: No Chest Pain, No Palpitations, No Orthopnea, No Paroxysmal Noc. Dyspnea, No Edema, No Lt Headedness, No Other Respiratory: No Cough, No Dry, No Shortness of breath, No SOB with excertion, No Wheezing, No Hemoptysis, No Pleuritic Pain, No Sputum, No Other Gastrointestinal: No Nausea, No Vomiting, No Abdominal Pain, No Diarrhea, No Constipation, No Melena, No Hematochezia, No Other Genitourinary: No Dysuria, No Frequency, No Incontinence, No Hematuria, No Retention, No Other Musculoskeletal: other (Left hip and left leg pain); No neck pain, No shoulder pain, No arm pain, No back pain, No hand pain, No leg pain, No foot pain Skin: No Rash, No Lesions, No Jaundice, No Bruising, No Other Objective Vitals Vital Signs Date Time Temp Pulse Resp B/P (MAP) Pulse Ox O2 Delivery O2 Flow Rate FiO2 04/03/25 09:57 117/69 04/03/25 09:17 97.7 92 16 100 97.7 04/03/25 08:00 Nasal Cannula* 2 28 Intake/Output Intake and Output 04/03/25 07:00 Intake Total 1750 ml Output Total 2600 ml Balance -850 ml Intake Oral 1550 ml IV Total 200 ml Output Urine Total 2600 ml # Bowel Movements 3 General Appearance: Alert, Cooperative, No acute distress HEENT: Atraumatic, PERRLA, EOMI, Mucous membr. moist/pink Neck: Supple Lungs: Clear to auscultation, Normal air movement Cardiovascular: Regular rate, Normal S1, Normal S2, No murmurs, Gallops, Rubs Abdomen: Normal bowel sounds, Soft, No tenderness Neuro: Cranial nerves 3-12 NL Psych/Mental Status: Mental status NL Medications Current Medications Medications Dose Ordered Sig/Ethan Route Start Time Stop Time Status Last Admin Dose Admin Acetaminophen 650 mg Q6HP PRN PO 03/29/25 23:00 04/01/25 14:48 650 MG Clonidine HCl 0.1 mg Q4HP PRN PO 03/30/25 03:00 Acetaminophen/ Hydrocodone Bitart 1 tab Q4HP PRN PO 03/30/25 03:00 04/03/25 09:58 1 TAB Ondansetron HCl 4 mg Q4HP PRN IV 03/30/25 03:00 Docusate Sodium 100 mg BIDPRN PRN PO 03/30/25 03:00 04/03/25 09:57 100 MG Nitroglycerin 0.4 mg Q5MINP PRN SL 03/30/25 03:00 Morphine Sulfate 2 mg Q30M PRN IV 03/30/25 03:00 Lactated Ringer's 1,000 ml @ 100 mls/hr Q10H IV 03/31/25 12:15 04/03/25 09:51 100 MLS/HR Sodium Chloride 10 ml Q8HR IV 03/31/25 14:00 04/03/25 06:23 10 ML Enoxaparin Sodium 40 mg DAILY SC 04/01/25 10:00 04/03/25 09:57 40 MG Acetaminophen/ Hydrocodone Bitart 1 tab Q4HP PRN PO 03/31/25 12:15 Hold Lisinopril 10 mg DAILY PO 04/02/25 10:00 04/03/25 09:57 10 MG Aspirin 81 mg DAILY PO 04/02/25 10:00 04/03/25 09:55 81 MG Gabapentin 300 mg HS PO 04/01/25 22:00 04/02/25 21:45 300 MG Cyanocobalamin 1,000 mcg DAILY PO 04/03/25 10:00 04/03/25 09:56 1,000 MCG Calcium/Vitamin D 1 tab DAILY PO 04/03/25 10:00 04/03/25 09:56 1 TAB Laboratory Results Laboratory Tests 04/03/25 08:37 Chemistry Test 04/03/25 08:37 Calcium Level 8.2 mg/dL (8.7-10.4) L Urinalysis Test 04/01/25 01:17 Urine Color Yellow (Yellow) Urine Clarity Clear (Clear) Urine pH 5.5 (5.0-9.0) Urine Specific [place] 1.028 (1.001-1.035) Urine Protein Trace (Negative) H Urine Ketones 2+ (Negative) H Urine Blood 2+ /uL (Negative) H Urine Nitrite Negative (Negative) Urine Bilirubin Negative (Negative) Urine Urobilinogen Normal mg/dL (Negative) Urine Leukocyte Esterase 2+ /uL (Negative) Urine RBC 148 /hpf (0 - 4) Urine Microscopic WBC 38 /HPF (0-5) H Urine Squamous Epithelial Cells Few /hpf (<5) Urine Bacteria None seen /hpf (None Seen) Urine Mucus Few (None Seen) Urine Glucose Normal mg/dL (Normal) Labs and/or images reviewed: Labs reviewed by me Assessment/Plan Assessment/Plan Left Intertrochanteric fracture status post ORIF Hypertensive urgency, improved. Generalized weakness Encephalopathy ? Hallucination. History of Aortic valve replacement. Continue current management. PT per orthopedic surgeon. Patient was able to stand up only and did not take step yet Advise SNF but she adamant refuse. Will anticipate to send home with bedside comode and FWW when pain controlled better and patient able to walk with walker for 10 feet or more Continue HTN meds CT head show no acute CVA UA is normal This medical document was created using an electronic medical record system with [employer] direct computerized dictation system. Although this document has been carefully reviewed, there may still be some phonetic and typographical errors. These areas are purely typographical due to imperfections of the software programs, and do not reflect any compromise in the patient's medical care. Plan discussed with: Patient My Orders Orders - MAHAMED MARRERO MD Procedure Category Date Status Time Cyanocobalamin PHA 04/03/25 In Process (Vitamin B-12) 10:00 Calcium W/Vit D PHA 04/03/25 In Process Tablet (Oscal W/Vit D 10:00 * Rn Imaging CONS 04/03/25 Verified Consult Dme: [employer] [facility] 04/03/25 Verified 11:32 Dme: [facility]ME 04/03/25 Verified 11:32 Date of Service: Apr 03, 2025 Billing Provider: MAHAMED MARRERO MD Common Visit Codes: [id number] INP/OBS CARE(HIGH) MAHAMED MARRERO MD Apr 03, 2025 11:34
--- NOTE | 2025-04-03 13:01 | DVHDS2 ---
Discharge Summary Date of Admission Mar 30, 2025 at 02:49 Labs/Diagnostic Data: Laboratory Results Test 04/03/25 08:37 04/01/25 01:17 03/31/25 18:37 03/29/25 17:24 White Blood Count 8.1 10^3/uL (4.4-10.8) Red Blood Count 2.41 10^6/uL (4.0-5.20) Hemoglobin 7.6 g/dL (12.2-16.2) Hematocrit 22.2 % (36.0-46.0) Mean Corpuscular Volume 92.0 fL (80.0-100.0) Mean Corpuscular Hemoglobin 31.4 pg (28.0-32.0) Mean Corpuscular Hemoglobin Concent 34.1 g/dL (32.0-36.0) Red Cell Distribution Width 13.7 % (11.8-14.3) Platelet Count 215 10^3/uL (140-450) Mean Platelet Volume 8.6 fL (6.9-10.8) Neutrophils (%) (Auto) 74.2 % (37.0-80.0) Lymphocytes (%) (Auto) 15.0 % (10.0-50.0) Monocytes (%) (Auto) 9.4 % (0.0-12.0) Eosinophils (%) (Auto) 1.1 % (0.0-7.0) Basophils (%) (Auto) 0.3 % (0.0-2.0) Neutrophils # (Auto) 6.0 10 ^3/uL (1.6-8.6) Lymphocytes # (Auto) 1.2 10 ^3/uL (0.4-5.4) Monocytes # (Auto) 0.8 10 ^3/uL (0-1.3) Eosinophils # (Auto) 0.1 10 ^3/uL (0-0.8) Basophils # (Auto) 0 10 ^3/uL (0-0.2) Nucleated Red Blood Cells 0.1 % Sodium Level 137 mmol/L (136-145) Potassium Level 3.8 mmol/L (3.5-5.1) Chloride Level 101 mmol/L (98-107) Carbon Dioxide Level 27 mmol/L (20-31) Anion Gap 9 (5-15) Blood Urea Nitrogen 18 mg/dL (9-23) Creatinine 0.65 mg/dL (0.550-1.02) Glomerular Filtration Rate Calc 85 mL/min (>90) BUN/Creatinine Ratio 27.7 (10.0-20.0) Serum Glucose 146 mg/dL (74-106) Calcium Level 8.2 mg/dL (8.7-10.4) Urine Color Yellow (Yellow) Urine Clarity Clear (Clear) Urine pH 5.5 (5.0-9.0) Urine Specific [place] 1.028 (1.001-1.035) Urine Protein Trace (Negative) Urine Ketones 2+ (Negative) Urine Blood 2+ /uL (Negative) Urine Nitrite Negative (Negative) Urine Bilirubin Negative (Negative) Urine Urobilinogen Normal mg/dL (Negative) Urine Leukocyte Esterase 2+ /uL (Negative) Urine RBC 148 /hpf (0 - 4) Urine Microscopic WBC 38 /HPF (0-5) Urine Squamous Epithelial Cells Few /hpf (<5) Urine Bacteria None seen /hpf (None Seen) Urine Mucus Few (None Seen) Urine Glucose Normal mg/dL (Normal) Prothrombin Time 10.9 sec (9.3-11.8) Prothrombin Time INR 1.03 (0.9-1.15) Activated Partial Thromboplast Time 25.0 SEC (24.5-34.5) Total Bilirubin 0.9 mg/dL (0.2-1.0) Aspartate Amino Transferase (AST) 61 U/L (13-40) Alanine Aminotransferase (ALT) 26 U/L (7-40) Alkaline Phosphatase 66 U/L (46-116) Total Protein 5.8 g/dL (5.7-8.2) Albumin 3.5 g/dL (3.2-4.8) Troponin I High Sensitivity 6 ng/L (</=34) Test 03/29/25 16:20 Lactic Acid Level 1.0 mmol/L (0.4-2.0) Lipase 66 U/L (12-53) Other Laboratory Tests 04/03/25 08:37 Condition at Discharge: Stable Final Diagnosis/Problems List Left proximal femur displaced intertrochanteric fracture Discharge Disposition: Still a Patient Discharge Instruct/Medications Scheduled Gabapentin (Gabapentin), 1 CAP PO TID, (Reported) Lisinopril (Lisinopril), 1 TAB PO DAILY, (Reported) Discharge Statement: "Patient was advised to return to the ER or call 911 if any headaches, dizziness, shortness of breath, chest pain, abdominal pain, bleeding, fevers, or worsening of medical condition. Patient was counseled about treatment plan, medications, possible side effects, patientverbalized understanding. All questions were answered to the best of my ability. This discharge took greater then 30 minutes in planning, reviewing documentation, counseling the patient, and discussing with other team members." DME: Diagnosis: Left proximal femur displaced intertrochanteric fracture ASSESSMENT ASSESSMENT Assessment Left proximal femur displaced intertrochanteric fracture MAHAMED MARRERO MD Apr 03, 2025 13:01
[2025-04-04] VITALS (8 sets, daily range): BP systolic 100–132; BP diastolic 51–72; PULSE 84–152; RESP 16–20; TEMP 97.7–98.6; O2SAT 91–100
[2025-04-04] MEDS ORDERED: POLYETHYLENE GLYCOL 17 GM PWDR PO PRN (10:00)
[2025-04-04] MEDS: Ensure HIGH Protein Chocolate 8oz Bottle PO SCH (12:52)
[2025-04-04] MEDS: HYDROcodone-ACET 10/325MG TAB PO PRN (12:53)
--- NOTE | 2025-04-04 22:56 | DVHPN2 ---
Subjective The patient seen and examined at bedside.The patient sit up today and take couple step but was not able to walk 10 feets yet. Complains of severe hip pain that limitted her to walk. Request norco, also complains of constipation. On colace. Reviewed: Care Plan, H&P, Labs, Medications, Previous Orders, Radiology Changes from previous H/P or p: No Changes Eyes: No Pain, No Vision change, No Conjunctivae inflammation, No Eyelid inflammation, No Other, No Redness ENT: No Ear pain, No Ear discharge, No Nose pain, No Nose discharge, No Nose congestion, No Mouth pain, No Mouth swelling, No Throat pain, No Throat swelling, No Other Cardiovascular: No Chest Pain, No Palpitations, No Orthopnea, No Paroxysmal Noc. Dyspnea, No Edema, No Lt Headedness, No Other Respiratory: No Cough, No Dry, No Shortness of breath, No SOB with excertion, No Wheezing, No Hemoptysis, No Pleuritic Pain, No Sputum, No Other Gastrointestinal: No Nausea, No Vomiting, No Abdominal Pain, No Diarrhea, No Constipation, No Melena, No Hematochezia, No Other Genitourinary: No Dysuria, No Frequency, No Incontinence, No Hematuria, No Retention, No Other Musculoskeletal: other (Left hip and left leg pain); No neck pain, No shoulder pain, No arm pain, No back pain, No hand pain, No leg pain, No foot pain Skin: No Rash, No Lesions, No Jaundice, No Bruising, No Other Objective Vitals Vital Signs Date Time Temp Pulse Resp B/P (MAP) Pulse Ox O2 Delivery O2 Flow Rate FiO2 04/04/25 21:00 97.7 118 17 116/67 (83) 99 97.7 04/04/25 20:00 Nasal Cannula* 2 28 Intake/Output Intake and Output 04/04/25 07:00 Intake Total 1080 ml Output Total 2475 ml Balance -1395 ml Intake Oral 1080 ml Output Urine Total 2475 ml # Bowel Movements 1 General Appearance: Alert, Cooperative, No acute distress HEENT: Atraumatic, PERRLA, EOMI, Mucous membr. moist/pink Neck: Supple Lungs: Clear to auscultation, Normal air movement Cardiovascular: Regular rate, Normal S1, Normal S2, No murmurs, Gallops, Rubs Abdomen: Normal bowel sounds, Soft, No tenderness Neuro: Cranial nerves 3-12 NL Psych/Mental Status: Mental status NL Medications Current Medications Medications Dose Ordered Sig/Ethan Route Start Time Stop Time Status Last Admin Dose Admin Acetaminophen 650 mg Q6HP PRN PO 03/29/25 23:00 04/03/25 23:24 650 MG Clonidine HCl 0.1 mg Q4HP PRN PO 03/30/25 03:00 Ondansetron HCl 4 mg Q4HP PRN IV 03/30/25 03:00 Docusate Sodium 100 mg BIDPRN PRN PO 03/30/25 03:00 04/03/25 23:23 100 MG Nitroglycerin 0.4 mg Q5MINP PRN SL 03/30/25 03:00 Morphine Sulfate 2 mg Q30M PRN IV 03/30/25 03:00 Lactated Ringer's 1,000 ml @ 100 mls/hr Q10H IV 03/31/25 12:15 04/04/25 15:45 100 MLS/HR Sodium Chloride 10 ml Q8HR IV 03/31/25 14:00 04/04/25 14:02 10 ML Enoxaparin Sodium 40 mg DAILY SC 04/01/25 10:00 04/04/25 09:18 40 MG Lisinopril 10 mg DAILY PO 04/02/25 10:00 04/04/25 09:18 10 MG Aspirin 81 mg DAILY PO 04/02/25 10:00 04/04/25 09:17 81 MG Gabapentin 300 mg HS PO 04/01/25 22:00 04/03/25 22:34 300 MG Cyanocobalamin 1,000 mcg DAILY PO 04/03/25 10:00 04/04/25 09:16 1,000 MCG Calcium/Vitamin D 1 tab DAILY PO 04/03/25 10:00 04/04/25 09:16 1 TAB Enteral Nutritional Formula 240 ml TIDWM PO 04/04/25 12:00 04/04/25 18:24 240 ML Polyethylene Glycol 17 gm DAILYPRN PRN PO 04/04/25 10:00 Acetaminophen/ Hydrocodone Bitart 1 tab Q4HP PRN PO 04/04/25 11:15 Acetaminophen/ Hydrocodone Bitart 1 tab Q4HP PRN PO 04/04/25 11:15 04/04/25 12:53 1 TAB Laboratory Results Laboratory Tests 04/03/25 08:37 Urinalysis Test 04/01/25 01:17 Urine Color Yellow (Yellow) Urine Clarity Clear (Clear) Urine pH 5.5 (5.0-9.0) Urine Specific [place] 1.028 (1.001-1.035) Urine Protein Trace (Negative) H Urine Ketones 2+ (Negative) H Urine Blood 2+ /uL (Negative) H Urine Nitrite Negative (Negative) Urine Bilirubin Negative (Negative) Urine Urobilinogen Normal mg/dL (Negative) Urine Leukocyte Esterase 2+ /uL (Negative) Urine RBC 148 /hpf (0 - 4) Urine Microscopic WBC 38 /HPF (0-5) H Urine Squamous Epithelial Cells Few /hpf (<5) Urine Bacteria None seen /hpf (None Seen) Urine Mucus Few (None Seen) Urine Glucose Normal mg/dL (Normal) Labs and/or images reviewed: Labs reviewed by me Assessment/Plan Assessment/Plan Left Intertrochanteric fracture status post ORIF Hypertensive urgency, improved. Generalized weakness Encephalopathy ? Hallucination. History of Aortic valve replacement. Continue current management. PT per orthopedic surgeon. Patient was able to stand up only and did not take step yet Advise SNF but she adamant refuse. Will anticipate to send home with bedside comode and FWW when pain controlled better and patient able to walk with walker for 10 feet or more Continue HTN meds CT head show no acute CVA UA is normal Will give miralax 17gm 1 pack/daily as needed for constipation. Continue colace. Stable to transfer to [place]. This medical document was created using an electronic medical record system with [employer] direct computerized dictation system. Although this document has been carefully reviewed, there may still be some phonetic and typographical errors. These areas are purely typographical due to imperfections of the software programs, and do not reflect any compromise in the patient's medical care. Plan discussed with: Patient, Other (granddaughter) My Orders Orders - MAHAMED MARRERO MD Procedure Category Date Status Time Nutritional PHA 04/04/25 In Process Supplements (Ensure 12:00 Polyethylene Glycol PHA 04/04/25 In Process 17g Powder (Miralax 10:00 * Food Concession Manager CONS 04/04/25 Transmitted Consult L Knee 3v Xray XY 04/04/25 Logged 19:38 Date of Service: Apr 04, 2025 Billing Provider: MAHAMED MARRERO MD Common Visit Codes: [id number] INP/OBS CARE(HIGH) MAHAMED MARRERO MD Apr 04, 2025 22:56
[2025-04-05] VITALS (7 sets, daily range): BP systolic 108–147; BP diastolic 59–82; PULSE 110–167; RESP 16–19; TEMP 97.6–98.3; O2SAT 93–100
--- NOTE | 2025-04-05 05:54 | DVH ---
CLINICAL INDICATION: pain TECHNIQUE: XY L KNEE 3V XRAY Comparison: XY L HIP COMPLETE XRAY on DOS: 03/31/25, XY L HIP COMPLETE XRAY on DOS: 03/30/25, CT LEFT LOWER EXTREMITY W/O CON on DOS: 03/29/25 FINDINGS/IMPRESSION: : Moderate diffuse generalized osseous demineralization. 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 No evidence of fracture or dislocation. Moderate chondrocalcinosis. Atherosclerotic vascular calcifications. Small suprapatellar joint effusion. Soft tissues are otherwise unremarkable.
--- NOTE | 2025-04-05 12:30 | DVHPN2 ---
Subjective The patient seen and examined at bedside.The patient sit up today and take couple step but still not able to walk 10 feets yet. Complains of severe hip pain that limitted her to walk. Request norco, also complains of constipation. On colace, miralax Reviewed: Care Plan, H&P, Labs, Medications, Previous Orders, Radiology Changes from previous H/P or p: No Changes Eyes: No Pain, No Vision change, No Conjunctivae inflammation, No Eyelid inflammation, No Other, No Redness ENT: No Ear pain, No Ear discharge, No Nose pain, No Nose discharge, No Nose congestion, No Mouth pain, No Mouth swelling, No Throat pain, No Throat swelling, No Other Cardiovascular: No Chest Pain, No Palpitations, No Orthopnea, No Paroxysmal Noc. Dyspnea, No Edema, No Lt Headedness, No Other Respiratory: No Cough, No Dry, No Shortness of breath, No SOB with excertion, No Wheezing, No Hemoptysis, No Pleuritic Pain, No Sputum, No Other Gastrointestinal: No Nausea, No Vomiting, No Abdominal Pain, No Diarrhea, No Constipation, No Melena, No Hematochezia, No Other Genitourinary: No Dysuria, No Frequency, No Incontinence, No Hematuria, No Retention, No Other Musculoskeletal: other (Left hip and left leg pain); No neck pain, No shoulder pain, No arm pain, No back pain, No hand pain, No leg pain, No foot pain Skin: No Rash, No Lesions, No Jaundice, No Bruising, No Other Objective Vitals Vital Signs Date Time Temp Pulse Resp B/P (MAP) Pulse Ox O2 Delivery O2 Flow Rate FiO2 04/05/25 10:20 110/82 04/05/25 09:00 98.0 110 16 96 98.0 04/04/25 20:00 Nasal Cannula* 2 28 Intake/Output Intake and Output 04/05/25 07:00 Intake Total 1400 ml Output Total 2250 ml Balance -850 ml Intake Oral 1100 ml IV Total 300 ml Output Urine Total 2250 ml # Bowel Movements 2 General Appearance: Alert, Cooperative, No acute distress HEENT: Atraumatic, PERRLA, EOMI, Mucous membr. moist/pink Neck: Supple Lungs: Clear to auscultation, Normal air movement Cardiovascular: Regular rate, Normal S1, Normal S2, No murmurs, Gallops, Rubs Abdomen: Normal bowel sounds, Soft, No tenderness Neuro: Cranial nerves 3-12 NL Psych/Mental Status: Mental status NL Medications Current Medications Medications Dose Ordered Sig/Ethan Route Start Time Stop Time Status Last Admin Dose Admin Acetaminophen 650 mg Q6HP PRN PO 03/29/25 23:00 04/03/25 23:24 650 MG Clonidine HCl 0.1 mg Q4HP PRN PO 03/30/25 03:00 Ondansetron HCl 4 mg Q4HP PRN IV 03/30/25 03:00 Docusate Sodium 100 mg BIDPRN PRN PO 03/30/25 03:00 04/03/25 23:23 100 MG Nitroglycerin 0.4 mg Q5MINP PRN SL 03/30/25 03:00 Morphine Sulfate 2 mg Q30M PRN IV 03/30/25 03:00 Lactated Ringer's 1,000 ml @ 100 mls/hr Q10H IV 03/31/25 12:15 04/04/25 15:45 100 MLS/HR Sodium Chloride 10 ml Q8HR IV 03/31/25 14:00 04/05/25 06:00 10 ML Enoxaparin Sodium 40 mg DAILY SC 04/01/25 10:00 04/05/25 10:20 40 MG Lisinopril 10 mg DAILY PO 04/02/25 10:00 04/05/25 10:20 10 MG Aspirin 81 mg DAILY PO 04/02/25 10:00 04/05/25 10:21 81 MG Gabapentin 300 mg HS PO 04/01/25 22:00 04/04/25 22:52 300 MG Cyanocobalamin 1,000 mcg DAILY PO 04/03/25 10:00 04/05/25 10:20 1,000 MCG Calcium/Vitamin D 1 tab DAILY PO 04/03/25 10:00 04/05/25 10:20 1 TAB Enteral Nutritional Formula 240 ml TIDWM PO 04/04/25 12:00 04/04/25 18:24 240 ML Polyethylene Glycol 17 gm DAILYPRN PRN PO 04/04/25 10:00 Acetaminophen/ Hydrocodone Bitart 1 tab Q4HP PRN PO 04/04/25 11:15 Acetaminophen/ Hydrocodone Bitart 1 tab Q4HP PRN PO 04/04/25 11:15 04/04/25 12:53 1 TAB Laboratory Results Laboratory Tests 04/03/25 08:37 Urinalysis Test 04/01/25 01:17 Urine Color Yellow (Yellow) Urine Clarity Clear (Clear) Urine pH 5.5 (5.0-9.0) Urine Specific [place] 1.028 (1.001-1.035) Urine Protein Trace (Negative) H Urine Ketones 2+ (Negative) H Urine Blood 2+ /uL (Negative) H Urine Nitrite Negative (Negative) Urine Bilirubin Negative (Negative) Urine Urobilinogen Normal mg/dL (Negative) Urine Leukocyte Esterase 2+ /uL (Negative) Urine RBC 148 /hpf (0 - 4) Urine Microscopic WBC 38 /HPF (0-5) H Urine Squamous Epithelial Cells Few /hpf (<5) Urine Bacteria None seen /hpf (None Seen) Urine Mucus Few (None Seen) Urine Glucose Normal mg/dL (Normal) Labs and/or images reviewed: Labs reviewed by me Assessment/Plan Assessment/Plan Left Intertrochanteric fracture status post ORIF Hypertensive urgency, improved. Generalized weakness Encephalopathy ? Hallucination. History of Aortic valve replacement. Continue current management. PT per orthopedic surgeon. Patient was able to stand up only and did not take step yet Advise SNF but she adamant refuse. Will anticipate to send home with bedside comode and FWW when pain controlled better and patient able to walk with walker for 10 feet or more Continue HTN meds CT head show no acute CVA UA is normal Will give miralax 17gm 1 pack/daily as needed for constipation. Continue colace. Stable to transfer to [place]. However, per , [place] recommend to send patient home with DME and PT. Patient is not stable to discharge home yet since she can only take couple step but not able to ambulate more than 10 feet yet. Also I DW RN, per RN, patient has BM yesterday. Patient abdomen is distend. Will try fleet enema today. This medical document was created using an electronic medical record system with [employer] direct computerized dictation system. Although this document has been carefully reviewed, there may still be some phonetic and typographical errors. These areas are purely typographical due to imperfections of the software programs, and do not reflect any compromise in the patient's medical care. Plan discussed with: Patient, Daughter, Other (RN) My Orders Orders - MAHAMED MARRERO MD Procedure Category Date Status Time L Knee 3v Xray XY 04/04/25 Resulted 19:38 Date of Service: Apr 05, 2025 Billing Provider: MAHAMED MARRERO MD Common Visit Codes: [id number] INP/OBS CARE(HIGH) MAHAMED MARRERO MD Apr 05, 2025 12:30
[2025-04-05] MEDS ORDERED: FLEET ENEMA(ADULT) 135 ML PR PRN (16:30)
[2025-04-06] VITALS (8 sets, daily range): BP systolic 107–128; BP diastolic 50–76; PULSE 59–158; RESP 16–20; TEMP 97.6–99.1; O2SAT 92–98
--- NOTE | 2025-04-06 14:45 | DVHPN2 ---
Subjective The patient seen and examined at bedside.The patient sit up today and take couple step . Per patient she walked about 15 ft. Reviewed: Care Plan, H&P, Labs, Medications, Previous Orders, Radiology Changes from previous H/P or p: No Changes Eyes: No Pain, No Vision change, No Conjunctivae inflammation, No Eyelid inflammation, No Other, No Redness ENT: No Ear pain, No Ear discharge, No Nose pain, No Nose discharge, No Nose congestion, No Mouth pain, No Mouth swelling, No Throat pain, No Throat swelling, No Other Cardiovascular: No Chest Pain, No Palpitations, No Orthopnea, No Paroxysmal Noc. Dyspnea, No Edema, No Lt Headedness, No Other Respiratory: No Cough, No Dry, No Shortness of breath, No SOB with excertion, No Wheezing, No Hemoptysis, No Pleuritic Pain, No Sputum, No Other Gastrointestinal: No Nausea, No Vomiting, No Abdominal Pain, No Diarrhea, No Constipation, No Melena, No Hematochezia, No Other Genitourinary: No Dysuria, No Frequency, No Incontinence, No Hematuria, No Retention, No Other Musculoskeletal: other (Left hip and left leg pain); No neck pain, No shoulder pain, No arm pain, No back pain, No hand pain, No leg pain, No foot pain Skin: No Rash, No Lesions, No Jaundice, No Bruising, No Other Objective Vitals Vital Signs Date Time Temp Pulse Resp B/P (MAP) Pulse Ox O2 Delivery O2 Flow Rate FiO2 04/06/25 13:00 98.0 64 16 128/69 (88) 95 98.0 04/06/25 08:11 Room Air* 0 21 Intake/Output Intake and Output 04/06/25 07:00 Intake Total 1200 ml Output Total 1950 ml Balance -750 ml Intake Oral 1200 ml Output Urine Total 1950 ml # Bowel Movements 1 General Appearance: Alert, Cooperative, No acute distress HEENT: Atraumatic, PERRLA, EOMI, Mucous membr. moist/pink Neck: Supple Lungs: Clear to auscultation, Normal air movement Cardiovascular: Regular rate, Normal S1, Normal S2, No murmurs, Gallops, Rubs Abdomen: Normal bowel sounds, Soft, No tenderness Neuro: Cranial nerves 3-12 NL Psych/Mental Status: Mental status NL Medications Current Medications Medications Dose Ordered Sig/Ethan Route Start Time Stop Time Status Last Admin Dose Admin Acetaminophen 650 mg Q6HP PRN PO 03/29/25 23:00 04/06/25 06:47 650 MG Clonidine HCl 0.1 mg Q4HP PRN PO 03/30/25 03:00 Ondansetron HCl 4 mg Q4HP PRN IV 03/30/25 03:00 Docusate Sodium 100 mg BIDPRN PRN PO 03/30/25 03:00 04/03/25 23:23 100 MG Nitroglycerin 0.4 mg Q5MINP PRN SL 03/30/25 03:00 Morphine Sulfate 2 mg Q30M PRN IV 03/30/25 03:00 Lactated Ringer's 1,000 ml @ 100 mls/hr Q10H IV 03/31/25 12:15 04/04/25 15:45 100 MLS/HR Sodium Chloride 10 ml Q8HR IV 03/31/25 14:00 04/06/25 06:00 10 ML Enoxaparin Sodium 40 mg DAILY SC 04/01/25 10:00 04/06/25 11:29 40 MG Lisinopril 10 mg DAILY PO 04/02/25 10:00 04/06/25 11:28 10 MG Aspirin 81 mg DAILY PO 04/02/25 10:00 04/06/25 11:28 81 MG Gabapentin 300 mg HS PO 04/01/25 22:00 04/04/25 22:52 300 MG Cyanocobalamin 1,000 mcg DAILY PO 04/03/25 10:00 04/06/25 11:28 1,000 MCG Calcium/Vitamin D 1 tab DAILY PO 04/03/25 10:00 04/06/25 11:27 1 TAB Enteral Nutritional Formula 240 ml TIDWM PO 04/04/25 12:00 04/06/25 12:00 240 ML Polyethylene Glycol 17 gm DAILYPRN PRN PO 04/04/25 10:00 Acetaminophen/ Hydrocodone Bitart 1 tab Q4HP PRN PO 04/04/25 11:15 Acetaminophen/ Hydrocodone Bitart 1 tab Q4HP PRN PO 04/04/25 11:15 04/04/25 12:53 1 TAB Sodium Biphosphate/ Sodium Phosphate 135 ml ONCE PRN IN 04/05/25 16:30 Laboratory Results Laboratory Tests 04/03/25 08:37 Urinalysis Test 04/01/25 01:17 Urine Color Yellow (Yellow) Urine Clarity Clear (Clear) Urine pH 5.5 (5.0-9.0) Urine Specific [place] 1.028 (1.001-1.035) Urine Protein Trace (Negative) H Urine Ketones 2+ (Negative) H Urine Blood 2+ /uL (Negative) H Urine Nitrite Negative (Negative) Urine Bilirubin Negative (Negative) Urine Urobilinogen Normal mg/dL (Negative) Urine Leukocyte Esterase 2+ /uL (Negative) Urine RBC 148 /hpf (0 - 4) Urine Microscopic WBC 38 /HPF (0-5) H Urine Squamous Epithelial Cells Few /hpf (<5) Urine Bacteria None seen /hpf (None Seen) Urine Mucus Few (None Seen) Urine Glucose Normal mg/dL (Normal) Labs and/or images reviewed: Labs reviewed by me Assessment/Plan Assessment/Plan Left Intertrochanteric fracture status post ORIF Hypertensive urgency, improved. Generalized weakness Encephalopathy ? Hallucination. History of Aortic valve replacement. Continue current management. PT per orthopedic surgeon. Patient was able to stand up only and did not take step yet Advise SNF but she adamant refuse. Will anticipate to send home with bedside comode and FWW when pain controlled better and patient able to walk with walker for 10 feet or more Continue HTN meds CT head show no acute CVA UA is normal Continuing miralax 17gm 1 pack/daily as needed for constipation. Continue colace. Stable to transfer to [place]. However, per , [place] recommend to send patient home with DME and PT. Patient has ambulate 15 ft today. Planning to discharge. The patient has bowel movement. Continuing stool softener This medical document was created using an electronic medical record system with [employer] dictation system. Although this document has been carefully reviewed, there may still be some phonetic and typographical errors. These areas are purely typographical due to imperfections of the software programs, and do not reflect any compromise in the patient's medical care. This medical document was created using an electronic medical record system with [employer] system. Although this document has been carefully reviewed, there may still be some phonetic and typographical errors. These areas are purely typographical due to imperfections of the software programs, and do not reflect any compromise in the patient's medical care. Plan discussed with: Patient, Daughter My Orders Orders - MAHAMED MARRERO MD Procedure Category Date Status Time Fleet Enema Adult PHA 04/05/25 In Process 16:30 Date of Service: Apr 06, 2025 Billing Provider: MAHAMED MARRERO MD Common Visit Codes: [id number] INP/OBS CARE(HIGH) MAHAMED MARRERO MD Apr 06, 2025 14:45
[2025-04-06 18:13] LABS: Urine Protein, UAD TRACE (Negative)
[2025-04-06] MEDS ORDERED: ARTIFICIAL TEARS 15ml EACHEYE PRN (22:00)
[2025-04-07] VITALS (7 sets, daily range): BP systolic 110–143; BP diastolic 46–79; PULSE 65–151; RESP 16–18; TEMP 97.4–98.5; O2SAT 94–96
[2025-04-07] MEDS: HYDROcodone-ACET 5/325MG TAB PO PRN (10:14)
[2025-04-07] MEDS: SODIUM CHLORIDE 0.9% 1,000 ML IV ONE (15:00)
[2025-04-07 16:22] LABS: Urine Protein, UAD 2+ (Negative); Urine WBC Clumps PRESENT /hpf (None Seen)
--- NOTE | 2025-04-07 22:35 | DVHPN2 ---
Subjective The patient seen and examined at bedside.The patient sit up today and take couple step . Patient declined physical therapy today and one the physical therapist to come back later. Reviewed: Care Plan, H&P, Labs, Medications, Previous Orders, Radiology Changes from previous H/P or p: No Changes Eyes: No Pain, No Vision change, No Conjunctivae inflammation, No Eyelid inflammation, No Other, No Redness ENT: No Ear pain, No Ear discharge, No Nose pain, No Nose discharge, No Nose congestion, No Mouth pain, No Mouth swelling, No Throat pain, No Throat swelling, No Other Cardiovascular: No Chest Pain, No Palpitations, No Orthopnea, No Paroxysmal Noc. Dyspnea, No Edema, No Lt Headedness, No Other Respiratory: No Cough, No Dry, No Shortness of breath, No SOB with excertion, No Wheezing, No Hemoptysis, No Pleuritic Pain, No Sputum, No Other Gastrointestinal: No Nausea, No Vomiting, No Abdominal Pain, No Diarrhea, No Constipation, No Melena, No Hematochezia, No Other Genitourinary: No Dysuria, No Frequency, No Incontinence, No Hematuria, No Retention, No Other Musculoskeletal: other (Left hip and left leg pain); No neck pain, No shoulder pain, No arm pain, No back pain, No hand pain, No leg pain, No foot pain Skin: No Rash, No Lesions, No Jaundice, No Bruising, No Other Objective Vitals Vital Signs Date Time Temp Pulse Resp B/P (MAP) Pulse Ox O2 Delivery O2 Flow Rate FiO2 04/07/25 21:00 98.5 109 17 110/65 (80) 94 98.5 04/07/25 08:00 Room Air* 0 21 Intake/Output Intake and Output 04/07/25 07:00 Intake Total 1180 ml Output Total 1850 ml Balance -670 ml Intake Oral 1180 ml Output Urine Total 1850 ml General Appearance: Alert, Cooperative, No acute distress HEENT: Atraumatic, PERRLA, EOMI, Mucous membr. moist/pink Neck: Supple Lungs: Clear to auscultation, Normal air movement Cardiovascular: Regular rate, Normal S1, Normal S2, No murmurs, Gallops, Rubs Abdomen: Normal bowel sounds, Soft, No tenderness Neuro: Cranial nerves 3-12 NL Psych/Mental Status: Mental status NL Medications Current Medications Medications Dose Ordered Sig/Ethan Route Start Time Stop Time Status Last Admin Dose Admin Acetaminophen 650 mg Q6HP PRN PO 03/29/25 23:00 04/06/25 21:43 650 MG Clonidine HCl 0.1 mg Q4HP PRN PO 03/30/25 03:00 Ondansetron HCl 4 mg Q4HP PRN IV 03/30/25 03:00 Docusate Sodium 100 mg BIDPRN PRN PO 03/30/25 03:00 04/03/25 23:23 100 MG Nitroglycerin 0.4 mg Q5MINP PRN SL 03/30/25 03:00 Morphine Sulfate 2 mg Q30M PRN IV 03/30/25 03:00 Lactated Ringer's 1,000 ml @ 100 mls/hr Q10H IV 03/31/25 12:15 04/07/25 10:16 100 MLS/HR Sodium Chloride 10 ml Q8HR IV 03/31/25 14:00 04/07/25 22:08 10 ML Enoxaparin Sodium 40 mg DAILY SC 04/01/25 10:00 04/07/25 10:00 40 MG Lisinopril 10 mg DAILY PO 04/02/25 10:00 04/07/25 10:00 10 MG Aspirin 81 mg DAILY PO 04/02/25 10:00 04/07/25 09:59 81 MG Gabapentin 300 mg HS PO 04/01/25 22:00 04/07/25 22:05 300 MG Cyanocobalamin 1,000 mcg DAILY PO 04/03/25 10:00 04/07/25 09:59 1,000 MCG Calcium/Vitamin D 1 tab DAILY PO 04/03/25 10:00 04/07/25 09:59 1 TAB Enteral Nutritional Formula 240 ml TIDWM PO 04/04/25 12:00 04/07/25 18:09 240 ML Polyethylene Glycol 17 gm DAILYPRN PRN PO 04/04/25 10:00 Acetaminophen/ Hydrocodone Bitart 1 tab Q4HP PRN PO 04/04/25 11:15 04/07/25 10:14 1 TAB Acetaminophen/ Hydrocodone Bitart 1 tab Q4HP PRN PO 04/04/25 11:15 04/04/25 12:53 1 TAB Sodium Biphosphate/ Sodium Phosphate 135 ml ONCE PRN OH 04/05/25 16:30 Artificial Tears 1 drop Q6HP PRN EACHEYE 04/06/25 22:00 Laboratory Results Laboratory Tests 04/03/25 08:37 Urinalysis Test 04/01/25 01:17 04/07/25 15:50 Urine Mucus Few (None Seen) Urine Color Brown (Yellow) H Urine Clarity Ex.turbid (Clear) Urine pH 6.5 (5.0-9.0) Urine Specific [place] 1.015 (1.001-1.035) Urine Protein 2+ (Negative) H Urine Ketones Negative (Negative) Urine Blood 3+ /uL (Negative) H Urine Nitrite Negative (Negative) Urine Bilirubin Negative (Negative) Urine Urobilinogen 2 mg/dL (Negative) H Urine Leukocyte Esterase 3+ /uL (Negative) Urine RBC 521 /hpf (0 - 4) Urine WBC Clumps Present /hpf (None Seen) Urine Microscopic WBC 2342 /HPF (0-5) H Urine Squamous Epithelial Cells None seen /hpf (<5) Urine Bacteria Mod /hpf (None Seen) H Urine Glucose Normal mg/dL (Normal) Labs and/or images reviewed: Labs reviewed by me Assessment/Plan Assessment/Plan Left Intertrochanteric fracture status post ORIF Hypertensive urgency, improved. Generalized weakness Encephalopathy ? Hallucination. History of Aortic valve replacement. Continue current management. PT per orthopedic surgeon. Patient was able to stand up only and did not take step yet Advise SNF but she adamant refuse. Will anticipate to send home with bedside comode and FWW when pain controlled better and patient able to walk with walker for 10 feet or more Continue HTN meds CT head show no acute CVA UA is normal Continuing miralax 17gm 1 pack/daily as needed for constipation. Continue colace. Stable to transfer to [facility]. However, per , [facility] recommend to send patient home with DME and PT. Patient has ambulate 15 ft . Continuing physical therapy. We will requests DME for her to go home with. Discharge planning. This medical document was created using an electronic medical record system with [employer] direct computerized dictation system. Although this document has been carefully reviewed, there may still be some phonetic and typographical errors. These areas are purely typographical due to imperfections of the software programs, and do not reflect any compromise in the patient's medical care. This medical document was created using an electronic medical record system with [employer] direct computerized dictation system. Although this document has been carefully reviewed, there may still be some phonetic and typographical errors. These areas are purely typographical due to imperfections of the software programs, and do not reflect any compromise in the patient's medical care. Plan discussed with: Patient Date of Service: Apr 07, 2025 Billing Provider: MAHAMED MARRERO MD Common Visit Codes: [id number] INP/OBS CARE(HIGH) MAHAMED MARRERO MD Apr 07, 2025 22:35
[2025-04-08] VITALS (7 sets, daily range): BP systolic 105–141; BP diastolic 65–92; PULSE 101–145; RESP 16–20; TEMP 97.9–98.8; O2SAT 92–97
--- NOTE | 2025-04-08 11:33 | DVHDS2 ---
Discharge Summary Date of Admission Mar 30, 2025 at 02:49 Date of Discharge: Apr 08, 2025 Admitting Diagnosis Left Intertrochanteric fracture Hypertensive urgency, improved. Generalized weakness Encephalopathy ? Hallucination. History of Aortic valve replacement. Labs/Diagnostic Data: Laboratory Results Test 04/07/25 15:50 04/03/25 08:37 04/01/25 01:17 03/31/25 18:37 Urine Color Brown (Yellow) Urine Clarity Ex.turbid (Clear) Urine pH 6.5 (5.0-9.0) Urine Specific [place] 1.015 (1.001-1.035) Urine Protein 2+ (Negative) Urine Ketones Negative (Negative) Urine Blood 3+ /uL (Negative) Urine Nitrite Negative (Negative) Urine Bilirubin Negative (Negative) Urine Urobilinogen 2 mg/dL (Negative) Urine Leukocyte Esterase 3+ /uL (Negative) Urine RBC 521 /hpf (0 - 4) Urine WBC Clumps Present /hpf (None Seen) Urine Microscopic WBC 2342 /HPF (0-5) Urine Squamous Epithelial Cells None seen /hpf (<5) Urine Bacteria Mod /hpf (None Seen) Urine Glucose Normal mg/dL (Normal) White Blood Count 8.1 10^3/uL (4.4-10.8) Red Blood Count 2.41 10^6/uL (4.0-5.20) Hemoglobin 7.6 g/dL (12.2-16.2) Hematocrit 22.2 % (36.0-46.0) Mean Corpuscular Volume 92.0 fL (80.0-100.0) Mean Corpuscular Hemoglobin 31.4 pg (28.0-32.0) Mean Corpuscular Hemoglobin Concent 34.1 g/dL (32.0-36.0) Red Cell Distribution Width 13.7 % (11.8-14.3) Platelet Count 215 10^3/uL (140-450) Mean Platelet Volume 8.6 fL (6.9-10.8) Neutrophils (%) (Auto) 74.2 % (37.0-80.0) Lymphocytes (%) (Auto) 15.0 % (10.0-50.0) Monocytes (%) (Auto) 9.4 % (0.0-12.0) Eosinophils (%) (Auto) 1.1 % (0.0-7.0) Basophils (%) (Auto) 0.3 % (0.0-2.0) Neutrophils # (Auto) 6.0 10 ^3/uL (1.6-8.6) Lymphocytes # (Auto) 1.2 10 ^3/uL (0.4-5.4) Monocytes # (Auto) 0.8 10 ^3/uL (0-1.3) Eosinophils # (Auto) 0.1 10 ^3/uL (0-0.8) Basophils # (Auto) 0 10 ^3/uL (0-0.2) Nucleated Red Blood Cells 0.1 % Sodium Level 137 mmol/L (136-145) Potassium Level 3.8 mmol/L (3.5-5.1) Chloride Level 101 mmol/L (98-107) Carbon Dioxide Level 27 mmol/L (20-31) Anion Gap 9 (5-15) Blood Urea Nitrogen 18 mg/dL (9-23) Creatinine 0.65 mg/dL (0.550-1.02) Glomerular Filtration Rate Calc 85 mL/min (>90) BUN/Creatinine Ratio 27.7 (10.0-20.0) Serum Glucose 146 mg/dL (74-106) Calcium Level 8.2 mg/dL (8.7-10.4) Urine Mucus Few (None Seen) Prothrombin Time 10.9 sec (9.3-11.8) Prothrombin Time INR 1.03 (0.9-1.15) Activated Partial Thromboplast Time 25.0 SEC (24.5-34.5) Total Bilirubin 0.9 mg/dL (0.2-1.0) Aspartate Amino Transferase (AST) 61 U/L (13-40) Alanine Aminotransferase (ALT) 26 U/L (7-40) Alkaline Phosphatase 66 U/L (46-116) Total Protein 5.8 g/dL (5.7-8.2) Albumin 3.5 g/dL (3.2-4.8) Test 03/29/25 17:24 03/29/25 16:20 Troponin I High Sensitivity 6 ng/L (</=34) Lactic Acid Level 1.0 mmol/L (0.4-2.0) Lipase 66 U/L (12-53) Other Laboratory Tests 04/03/25 08:37 Brief Hx & Hospital Course: This is 89 years old female with past medical history of hypertension, came to emergency department after a mechanical fall. Patient hit her left hip and had severe hip pain. Patient can not stand on the left hip.Patient was seen and evaluated in the ED with an external rotation of the left leg and shortening .Left lower extremity CT revealing nondisplaced left intratrochanteric fracture with extension to the laser and greater trochanters; pelvis CT revealing left femoral intratrochanteric fracture. The patient was admitted. The patient subsequently had surgery done on the left hip with Left proximal femur intertrochanteric fracture closed reduction, cephalomedullary nail. After surgery the patient had a tough time to work with physical therapy because of severe pain and weakness. She only able to stand up and eventually able to take a couple steps in today she is able to walk more than 15 ft with the help with walker and physical therapy. Discuss with [employer] who is her primary insurance and per [employer] she does not need to transfer to [facility]. [employer] authorized for home health with physical therapy daily. I also requests [facility] walker and bedside commode for her. Patient will be discharged home today. Follow up with primary care physician 1-2 weeks. Follow up with orthopedic surgeon per schedule. Activity as tolerated. Diet per home diet. Recommend low-salt low-cholesterol diet. Physical exam: HEENT: Normocephalic atraumatic pupils equal react to light and accommodation. Extraocular muscles intact, conjunctiva pink, oropharynx moist, no thrush, no exudate. Lymphatic: No lymphadenopathy Cardiovascular exam: S1, S2 was heard. No murmurs, rubs, gallops Lung: Clear on auscultation bilaterally, no wheeze, rale, rhonchi. GI: Abdominal soft, nondistended, nontenderness, positive bowel sounds. Extremity: No crepitus, cyanosis, edema. Pedal pulses present bilateral. Limited range of motion on the left leg due to fracture Skin: Normal turgor, no rash. Psych: Alert, oriented x3. Neurology: No focal deficits, cranial nerve II to XII grossly intact. This medical document was created using an electronic medical record system with [employer] direct computerized dictation system. Although this document has been carefully reviewed, there may still be some phonetic and typographical errors. These areas are purely typographical due to imperfections of the software programs, and do not reflect any compromise in the patient's medical care. Condition at Discharge: Stable Final Diagnosis/Problems List Left proximal femur displaced intertrochanteric fracture status post Left proximal femur intertrochanteric fracture closed reduction, cephalomedullary nail Hypertensive urgency, improved. Generalized weakness Encephalopathy ? Hallucination. History of Aortic valve replacement. Discharge Disposition: Home Discharge Instruct/Medications Diet: Regular Activity: Light activity Follow Up/Referral: pcp 1-2 weeks Orthopedic surgeon per schedule Scheduled Cephalexin (Keflex Capsule), 2 CAP PO BID Gabapentin (Gabapentin), 1 CAP PO TID, (Reported) Lisinopril (Lisinopril), 1 TAB PO DAILY, (Reported) Scheduled PRN Hydrocodone-Acetaminophen (Hydrocodone Bitartrate/AC 10-325 mg), 1 TAB PO Q4HP PRN Lactulose (Lactulose), 10 GM PO Q8HPRN PRN Discharge Statement: "Patient was advised to return to the ER or call 911 if any headaches, dizziness, shortness of breath, chest pain, abdominal pain, bleeding, fevers, or worsening of medical condition. Patient was counseled about treatment plan, medications, possible side effects, patientverbalized understanding. All questions were answered to the best of my ability. This discharge took greater then 30 minutes in planning, reviewing documentation, counseling the patient, and discussing with other team members." DME: Diagnosis: Left proximal femur displaced intertrochanteric fracture ASSESSMENT ASSESSMENT Assessment Left proximal femur displaced intertrochanteric fracture Date of Service: Apr 08, 2025 Billing Provider: MAHAMED MARRERO MD Common Visit Codes: [id number] DISCH DAY >30min MAHAMED MARRERO MD Apr 08, 2025 11:33
[2025-04-08] MEDS ORDERED: CEPH250C PO (11:38)
[2025-04-08] MEDS ORDERED: HYDR-4798 PO (11:39)
[2025-04-08] MEDS ORDERED: LACT10SO3 PO (11:39)
== END 2025-04-08 18:40 | disposition home health service (06) | DRG 480 ==
LOC: EDBD 15:02 → ER 15:02 → OVERFLOW 03-30 02:49 → TELE-WESTW 03-30 16:30
PROVIDERS: ADMIT Internal Medicine; ATTEND Internal Medicine
PROC: BQ14ZZZ Fluoroscopy of Left Femur (ICD-10-PCS; 2025-03-31)
PROC: 0QS736Z Reposition Left Upper Femur with Intramedullary Internal Fixation Device, Percutaneous Approach (ICD-10-PCS; principal; 2025-03-31 10:55)
DX: S72.142A Displaced intertrochanteric fracture of left femur, initial encounter for closed fracture (principal); G93.41 Metabolic encephalopathy; R44.3 Hallucinations, unspecified; I16.0 Hypertensive urgency; I10 Essential (primary) hypertension; K59.00 Constipation, unspecified; W18.39XA Other fall on same level, initial encounter; Z95.2 Presence of prosthetic heart valve; Z79.899 Other long term (current) drug therapy; Y93.89 Activity, other specified; Y92.89 Other specified places as the place of occurrence of the external cause; Y99.8 Other external cause status
CPT/HCPCS: 36415; 70450; 72192; 73502; 73562; 73700; 76000; 80048; 80053; 81001; 83605; 83690; 84484; 85025; 85610; 85730; 86850; 86900; 86901; 97110; 97116; 97163; 97530; G0378; J1885; J2250